=== PATIENT | female | born 1945 | race Caucasian/White ===

== ENCOUNTER 2019-11-05 18:34 | Inpatient (IN) | payer MEDICARE ==
[~2019-11-05] VITALS: Ht 160 cm; Wt 52.0 kg
[2019-11-05 21:35] VITALS: BP 110/63
--- NOTE | 2019-11-05 21:35 | NUR ---
PT RECIEVED VIA STRETCHER FROM EMS, PT NONRESPONSIVE TO PAINFUL STIMULI, RIGHT IJ CVL INTACT WITH NS @ 125 CC/HR, PROPOFOL @ 54 MCG, AND VERSED @ 10.8 ML/HR, LUNGS CLEAR, ETT IN PLACE AND PATENT TO VENT, UJDGE PATENT TO BSD WITH CLEAR PRAKASH URINE, PULSES EQUAL AND PALPABLE, ZACH HOSE TO BILAT LOWER LEGS, BILAT SWR IN USE, WILL CONT TO MONITOR
[2019-11-05 22:00] VITALS: BP 110/63
[2019-11-05 22:29] VITALS: BP 110/63; BMI 20.1
[2019-11-05 22:45] VITALS: BP 104/63
[2019-11-05 23:00] VITALS: BP 104/62
--- NOTE | 2019-11-05 23:30 | NUR ---
PT REMAINS NONRESPONSIVETO STIMULI, VITALS STABLE
[2019-11-06] VITALS (27 sets, daily range): BP systolic 105–142; BP diastolic 56–85; Ht 160 cm; Wt 52.0 kg
--- NOTE | 2019-11-06 01:15 | NUR ---
PT REMAINS SEDATED, WITHDRAWS TO PAINFUL STIMULI, WILL CONT TO WEAN SEDATION
--- NOTE | 2019-11-06 03:00 | NUR ---
PT REMAINS SEDATED, WITHDRAWS TO PAINFUL STIMULI, VITALS REMAIN STABLE, WILL CONT TO MONITOR
[2019-11-06 04:37] LABS: BASOPHILS 0 % (0-2); EOSINOPHILS 0 % (0-7); HEMATOCRIT 31.8 % (36.0-48.0); HEMOGLOBIN 9.7 g/dL (12-16); IMMATURE GRANULOCYTES 0.7 % (0-5); LYMPHOCYTES 2.1 % (15-50); MCH 27.8 pg (26.0-34.0); MCHC 30.5 g/dL (31.0-37.0); MCV 91.1 fL (80.0-100.0); MEAN PLATELET VOLUME 9.8 fL (7.4-10.4); MONOCYTES 2.7 % (2-11); NEUTROPHILS 94.5 % (40-80); PLATELET COUNT 199 10x3/uL (130-400); RBC 3.49 10x6/uL (4.00-5.40); RDW 16.1 % (11.5-14.5); WBC 9.2 10x3/uL (4.8-10.8)
[2019-11-06 04:42] LABS: INR 1.02 (0.85-1.17); PROTIME 12.9 SECONDS (11.6-15.0)
[2019-11-06 04:57] LABS: ALBUMIN 1.9 g/dL (3.4-5.0); ALKALINE PHOSPHATASE 117 U/L (46-116); ALT (SGPT) 35 U/L (10-68); BILIRUBIN - TOTAL 0.23 mg/dL (0.2-1.3); CALC OSMOLALITY 292 mosm/kg (275-300); CARBON DIOXIDE 24.7 mmol/L (21.0-32.0); CHLORIDE - SERUM 111 mmol/L (98-107); CREATININE - SERUM 0.8 mg/dL (0.6-1.3); GLUCOSE 138 mg/dL (74-106); MAGNESIUM - SERUM 1.9 mg/dL (1.8-2.4); PHOSPHOROUS 2.1 mg/dL (2.5-4.9); POTASSIUM - SERUM 3.7 mmol/L (3.5-5.1); PRO BNP 2500 pg/mL (0-125); PROTEIN - SERUM 4.9 g/dL (6.4-8.2); SODIUM 143 mmol/L (136-145); THYROID STIMULATING HORMONE 0.28 uIU/mL (0.36-3.74); UREA NITROGEN 29 mg/dL (7-18); eGFR NON AFRICAN AMERICAN 75 mL/min (90-120)
[2019-11-06 05:11] LABS: CALCIUM 6.3 mg/dL (8.5-10.1)
--- NOTE | 2019-11-06 05:15 | NUR ---
OGT PLACED AND PLACEMENT VERIFIED WITH AUSCULTATION, PLACED TO LIWS, PT TOLERATED WELL, GRIMACES TO PAINFUL STIMULI, VITALS STABLE
[2019-11-06 05:20] LABS: APPEARANCE CLEAR (CLEAR); BILIRUBIN NEGATIVE (NEGATIVE); COLOR YELLOW (YELLOW); GLUCOSE NEGATIVE (NEGATIVE); KETONE NEGATIVE (NEGATIVE); NITRITE NEGATIVE (NEGATIVE); PROTEIN 1+ mg/dL (NEGATIVE); SPECIFIC GRAVITY 1.015 (1.005-1.020); UROBILINOGEN NORMAL (NORMAL)
[2019-11-06 05:21] LABS: BACTERIA FEW /hpf (NEGATIVE); EPITHELIAL CELLS 0-5 /hpf (0-5); WHITE CELLS - URINE 0-5 /hpf (NEGATIVE)
--- NOTE | 2019-11-06 07:00 | NUR ---
REPORT RECEIVED. ASSESSMENT COMPLETE PER FLOW SHEET. VSS. NO NWE CHANGES PT RESTING COMFORTABLY WILL CONTINUE TO MONITOR
--- NOTE | 2019-11-06 09:00 | NUR ---
DR MARTIN AT [facility] GIVEN UDPATE. NO NEW CHANGES WILL CONTINUE TOMONITOR
--- NOTE | 2019-11-06 11:00 | NUR ---
REASSESSMENT COMPLETE PER FLOW SHET. VSS. NO NEW CHANGES WILL CONTINUE TO MONITOR
--- NOTE | 2019-11-06 13:10 | NUR ---
DR MARISCAL AT BEDSIDE FAMILY AT BEDSIDE GIVEN UPDATE. NO NEW CAHNGES WILL CONTINUE TO MONTIOR
--- NOTE | 2019-11-06 15:00 | NUR ---
REASSESSMENT COMPLETE PER FLOW SHEET. VSS. NO NEW CAHNGES WILL CONTINUE TO MONITOR
--- NOTE | 2019-11-06 17:00 | NUR ---
PT RESTING COMFORTABLY VSS NO NEW CHANGES WILL CONTINUE TOMONITOR
--- NOTE | 2019-11-06 18:27 | MORECARE ---
CASE MANAGEMENT DISCHARGE SUMMARY PATIENT: DASIA STRATTON UNIT: [id number] ADM DATE: 11/05/19 AGE: 73 : [birth year] SEX: F ROOM/BED: D.2301 AUTHOR: AMINAH JOHNSON PHYSICIAN: REFERRING PHYSICIAN: JARRED KRUSE MD DATE OF SERVICE: 11/06/19 Discharge Plan Patient Name: DASIA STRATTON [facility] : 1945 Planned Disposition: Anticipated Discharge Date: Discharge Date: Expected LOS: Initial Reviewer: [email or web address] Initial Review Date: 11/06/2019 Generated: 11/06/19 7:27 pm Comments DCP- Discharge Planning Updated by [email or web address]: Natasha aPcheco on 11/06/19 5:[address] CM attempted to visit with patient regarding discharge planning/ needs. Patient currently on vent no family available. CM will continue to follow and assist as needed with discharge planning / needs Patient Name: DASIA STRATTON Page [id number] at 1827 All edits/amendments must be made on the electronic document DICTATION DATE: 11/06/191826 LOADER: PITA 11/06/191826 RPT#: [id number] DC DATE: STATUS: ADM IN [facility] [address] [place] [address] END OF REPORT
--- NOTE | 2019-11-06 18:39 | NUR ---
DR CHARLES CALLED BACK AND GIVEN UPDATE REGAURDING PT STATUS STATEDOKAY
--- NOTE | 2019-11-06 19:30 | NUR ---
PT SEDATED, ETT PATENT TO VENT, LUNGS CLEAR, OGT IN PLACE TO LIWS WITH GREEN OUTPUT, RIGHT IJ CVL INTACT WITH NS @ KVO AND PROPOFOL @ 55 MCG/KG/MIN, JUDGE PATENT TO BSD, BILAT SWR IN USE, SCD'S TO BILAT LOWER LEGS, VITALS STABLE
--- NOTE | 2019-11-06 21:00 | NUR ---
PT REMAINS SEDATED ON VENT, VITALS STABLE
--- NOTE | 2019-11-06 22:56 | NUR ---
REPOSITIONED FOR COMFORT, SMALL LOOSE BM X1, CLEANED PER STAFF, WILL CONT TO MONITOR
[2019-11-07] VITALS (24 sets, daily range): BP systolic 119–165; BP diastolic 62–91
--- NOTE | 2019-11-07 01:26 | NUR ---
PT RESTING QUIETLY, REMAINS SEDATED, VITALS STABLE
--- NOTE | 2019-11-07 03:00 | NUR ---
PT RESPONDS TO STIMULI, COOPERATIVE WITH CARE, BM X1, CLEANED PER STAFF, VITALS STABLE
[2019-11-07 04:32] LABS: BASOPHILS 0 % (0-2); EOSINOPHILS 0 % (0-7); HEMATOCRIT 33.2 % (36.0-48.0); IMMATURE GRANULOCYTES 0.8 % (0-5); LYMPHOCYTES 2.3 % (15-50); MCH 27.8 pg (26.0-34.0); MCHC 30.1 g/dL (31.0-37.0); MCV 92.2 fL (80.0-100.0); MEAN PLATELET VOLUME 9.7 fL (7.4-10.4); MONOCYTES 2.2 % (2-11); NEUTROPHILS 94.7 % (40-80); PLATELET COUNT 204 10x3/uL (130-400); RDW 16.2 % (11.5-14.5); WBC 9.6 10x3/uL (4.8-10.8)
[2019-11-07 05:01] LABS: ANION GAP 10.3 mmol/L (8-16); BILIRUBIN - TOTAL 0.38 mg/dL (0.2-1.3); CARBON DIOXIDE 26.3 mmol/L (21.0-32.0); CREATININE - SERUM 0.9 mg/dL (0.6-1.3); PHOSPHOROUS 1.7 mg/dL (2.5-4.9); POTASSIUM - SERUM 3.6 mmol/L (3.5-5.1)
[2019-11-07 05:02] LABS: CALCIUM 6.1 mg/dL (8.5-10.1)
--- NOTE | 2019-11-07 05:02 | NUR ---
REPOSITIONED, PT AGITATED @ TIMES, NO DISTRESS NOTED, WILL CONT TO MONITOR
--- NOTE | 2019-11-07 14:07 | NUR ---
0700-RECIEVED SUPINE VENTILATOR-OGT TO WALL SUCTION-SR ON MONITOR 0800-DAUGHTER AT BEDSIDE QUESTIONS ANSWERED TO BEST OF ABLILITY 1030-COMPLETE AM CARE DONE WITH LINEN CHANGE AND REPOSITONED TO R SIDE 1200-DR MARTIN AT [facility]-SPOKE WITH DAUGHTER REGARDING PT CONDITION AND PLANNED COURSE OF ACTION 1300-DR MARISCAL AT [facility]-SPOKE WITH DAUGHTER-PT CONCHIS 1-2KBRN
--- NOTE | 2019-11-07 18:46 | NUR ---
1500 OGT 16F PLACED WITHOUT DIFFICULTY-CONFIRMED PLACEMENT WITH AUSCULTATION AND ASPIRATION OF BILE-PULMOCARE AT 20ML/H STARTED- 1700-FAMILY AT BEDSIDE -PT ABLE TO NOD YES FOR FAMILY 1830-PT ON L SIDE-KBRN
[2019-11-08] VITALS (23 sets, daily range): BP systolic 123–196; BP diastolic 60–96
[2019-11-08 06:10] LABS: BASOPHILS 0 % (0-2); EOSINOPHILS 0 % (0-7); HEMATOCRIT 31.9 % (36.0-48.0); HEMOGLOBIN 9.5 g/dL (12-16); IMMATURE GRANULOCYTES 1.3 % (0-5); LYMPHOCYTES 1.9 % (15-50); MCH 27.5 pg (26.0-34.0); MCHC 29.8 g/dL (31.0-37.0); MCV 92.2 fL (80.0-100.0); MEAN PLATELET VOLUME 9.3 fL (7.4-10.4); MONOCYTES 3.6 % (2-11); NEUTROPHILS 93.2 % (40-80); PLATELET COUNT 196 10x3/uL (130-400); RBC 3.46 10x6/uL (4.00-5.40); RDW 16.3 % (11.5-14.5); WBC 7.7 10x3/uL (4.8-10.8)
[2019-11-08 06:29] LABS: ALKALINE PHOSPHATASE 87 U/L (46-116); BILIRUBIN - TOTAL 0.34 mg/dL (0.2-1.3); CARBON DIOXIDE 26.3 mmol/L (21.0-32.0); CHLORIDE - SERUM 115 mmol/L (98-107); CREATININE - SERUM 0.7 mg/dL (0.6-1.3); MAGNESIUM - SERUM 2.1 mg/dL (1.8-2.4); PHOSPHOROUS 1.9 mg/dL (2.5-4.9); POTASSIUM - SERUM 3.4 mmol/L (3.5-5.1); PROTEIN - SERUM 4.8 g/dL (6.4-8.2); SODIUM 151 mmol/L (136-145); UREA NITROGEN 24 mg/dL (7-18); eGFR NON AFRICAN AMERICAN 87 mL/min (90-120)
[2019-11-08 06:38] LABS: CALC OSMOLALITY 308 mosm/kg (275-300); GLUCOSE 187 mg/dL (74-106)
[2019-11-08 06:39] LABS: ALT (SGPT) 18 U/L (10-68); CALCIUM 5.8 mg/dL (8.5-10.1)
--- NOTE | 2019-11-08 08:39 | NUR ---
FAMILY AT BEDSDIE-PT ABLE TO NOD YES AND NO TO QUESTIONS
--- NOTE | 2019-11-08 17:55 | NUR ---
1115-CTA ORDERED -NOTED R JUGULAR ARROW PRODUCT-NON HIGH FLOW -R 20G FOLLOWING 3 ATTEMPT-OBTAINED AND CONFIRMED WITH CT RADIOLOGY ADEQUATE-RESP THERAPY AT [facility]-PORT VENT-DIPRIVAN GTT AT 60MCG-CONCHIS 1-2 FOR TRANSPORT AND PROCEDURE 1150-TOLERATED WELL -RETURNED TO -PLACED TO VENT-FAMILY BROUGHT TO [facility]-EXPLAINED TTEST AND REASON TO RULE OUT BLOOD CLOT IN LUNGS-DR MARTIN IN UNIT 1230-DR MARTIN SPOKE WITH FAMILY REGARDING FINDINGS AND PLAN OF ACTION-CPAP TRIALS TO START-DIPRIVAN DECREASED TO 10MCG-FAMILY STATED HIGH ANXIETY- 1315-PT ALERT-RR 22-PLACED TO CPAP TRIALS -FAMILY AT [facility]- 1330-PT AGITATED ATTEMPTING TO TALK -SHALLOW BREATS-TV<400-ENCOURAGED BY DAUGHTER NOT TO TALK AND AND TAKE SLOW DEEPER BREATH-PT NOT COMPREHENDING-VOLUNTEERED TO LEAVE- 1445-RR 33 TV 250-HR 112-NIBP 199/127-RETURNED TO A/C -DIPRIVAN RETURNED TO [id number]-[id number] NOTIFED- 1530-FAMILY AT BEDSIDE-
--- NOTE | 2019-11-08 19:15 | NUR ---
REPORT RECIEVED, SHIFT ASSESSMENT COMPLETE, PT IS SEDATED ON VENT, ON 30% FIO2 WITH 97% O2 SAT. ALL PPP, VSS, ORAL CARE PROVIDED, WILL CON'T TO MONITOR
--- NOTE | 2019-11-08 21:00 | NUR ---
UPDATE GIVEN TO FAMILY OVER PHONE, PASSWORD GIVEN
--- NOTE | 2019-11-08 23:24 | NUR ---
LG BM AT THIS TIME, COMPLETE BATH AND LINEN CHANGE
[2019-11-09] VITALS (25 sets, daily range): BP systolic 115–205; BP diastolic 55–98
--- NOTE | 2019-11-09 01:15 | NUR ---
PT RESTING AT THIS TIME, WILL CON'T TO MONITOR
--- NOTE | 2019-11-09 03:15 | NUR ---
REASSESSMENT COMPLETE, NO CHANGES NOTED,
[2019-11-09 04:32] LABS: BASOPHILS 0 % (0-2); EOSINOPHILS 0 % (0-7); HEMATOCRIT 31.4 % (36.0-48.0); HEMOGLOBIN 9.3 g/dL (12-16); IMMATURE GRANULOCYTES 1.5 % (0-5); LYMPHOCYTES 3.9 % (15-50); MCH 27.3 pg (26.0-34.0); MCHC 29.6 g/dL (31.0-37.0); MCV 92.1 fL (80.0-100.0); MEAN PLATELET VOLUME 9.5 fL (7.4-10.4); MONOCYTES 3.9 % (2-11); NEUTROPHILS 90.7 % (40-80); PLATELET COUNT 193 10x3/uL (130-400); RBC 3.41 10x6/uL (4.00-5.40); RDW 16.1 % (11.5-14.5); WBC 5.8 10x3/uL (4.8-10.8)
[2019-11-09 05:01] LABS: ALBUMIN 2.1 g/dL (3.4-5.0); ALKALINE PHOSPHATASE 81 U/L (46-116); ALT (SGPT) 17 U/L (10-68); BILIRUBIN - TOTAL 0.22 mg/dL (0.2-1.3); CALC OSMOLALITY 310 mosm/kg (275-300); CARBON DIOXIDE 31.2 mmol/L (21.0-32.0); CREATININE - SERUM 0.6 mg/dL (0.6-1.3); GLUCOSE 164 mg/dL (74-106); MAGNESIUM - SERUM 2.3 mg/dL (1.8-2.4); PHOSPHOROUS 2.3 mg/dL (2.5-4.9); POTASSIUM - SERUM 3.8 mmol/L (3.5-5.1); PROTEIN - SERUM 4.8 g/dL (6.4-8.2); SODIUM 153 mmol/L (136-145); UREA NITROGEN 22 mg/dL (7-18); VANCOMYCIN - RANDOM 6.6 ug/mL (10.0-20.0); eGFR NON AFRICAN AMERICAN > 90 mL/min (90-120)
[2019-11-09 05:04] LABS: CHLORIDE - SERUM 116 mmol/L (98-107)
[2019-11-09 05:05] LABS: CALCIUM 6.3 mg/dL (8.5-10.1)
--- NOTE | 2019-11-09 05:20 | NUR ---
REPOSITIONED FOR COMFORT, ORAL CARE PROVIDED, WILL CON'T TO MONITOR
--- NOTE | 2019-11-09 07:30 | NUR ---
REPORT RECIEVED FROM SANDY GARLAND. NO ACUTE DSITRESS. PATIETN AWAKENS TO VOICE. PROPOFOL TITRATED TO ALLOW PATIENT TO BECOME MORE ALERT. CALM. PULSES PALP IN ALL EXTREMITIES. MINIMAL CRACKLES IN UPPER LOBES OF LUNGS BILAT. PINK SKIN. CAP REFILL LESS THAN 3 SEC. ABLE TO FOLLOW COMMANDS. BED LOW AND LOCKED. CALL LIGHT IWTHIN REACH. WILL CONTINUE TO MONITOR
--- NOTE | 2019-11-09 09:00 | NUR ---
AGATAT HAD A BM. CLEANED UP BATH GIVEN AT THIST JAVAD. FULL LINEN CHANGE
--- NOTE | 2019-11-09 09:20 | NUR ---
NUTRITION F/U PT REMAINS ON VENT, PULMOCARE INFUSING AT 30 CC/HR WITH GOAL RATE 40 CC/HR. WILL CONTINUE TO PROVIDE PULMOCARE, MONITOR PT PROGRESS. RD FOLLOWING
--- NOTE | 2019-11-09 10:00 | NUR ---
CPAP TRIALS STARTED
--- NOTE | 2019-11-09 11:15 | NUR ---
patient back on a/c
--- NOTE | 2019-11-09 13:00 | NUR ---
DR MARTIN AT BEDSIDE. GAS RESULTS SHOWN. NO EXTUBATION TODAY. PATIENT WAS TOO ANXIOUS. HR, RR, AND BP ICNREASED. PER DR MARTIN, TO MAKE HER COMFORTABLE AND KEEP HER SEDATED. TRY CPAP TRIALS AGAIN TOMORROW MORNING. NO ACUTE DISTRESS. PATIENT ABLE TO FOLLOW COMMANDS. DAUGHTER AT BEDSIDE. UPDATE GIVEN. CALL LIGHT WITHINR EACH. WILL CONTINUE TO MONITOR. TUBE FEEDINGS ON HOLD PER CPAP TRIALS
--- NOTE | 2019-11-09 15:23 | NUR ---
PATIENT HAD A BM. CLEANED UP. BATH GIVEN AGAIN. JUDGE CARE DONE. TURNED. SUCTIONED. SEE ADL'S Q2 SEE ASSESSMENT. AFEBRILE. SEDATED. TUBE FEEDINGS GOING.
--- NOTE | 2019-11-09 17:31 | NUR ---
meds given per jan. patient sleeping. easily aroused by voice. can follwo commands. vss. pad changed underneath her. reoriented as needed. no acute distress. will continue to monitor
--- NOTE | 2019-11-09 18:12 | NUR ---
patient had bm. new pad provided.
--- NOTE | 2019-11-09 19:00 | NUR ---
REPORT RECEIVED. ASSESSMENT COMPLETE PER FLOW SHEET. VSS. PT RESTING COMFORTABLY. ORAL ENDOTRACH CARE ADM. REPOSITIONED FOR COMFORT. WILL CONTINUE TO MONITOR
--- NOTE | 2019-11-09 21:00 | NUR ---
PT REPOSITIONED WITH PROMINENCES BRIDGED. ORAL CARE PROVIDED. VSS, CPOC.
--- NOTE | 2019-11-09 23:30 | NUR ---
REASSESSMENT COMPLETE, NO NEW CHANGES AT THIS TIME. PARTIAL LINEN CHANGE PROVIDED. PT REPOSITIONED WITH PROMINENCES BRIDGED. ORAL CARE PROVIDED. VSS, NO S/S OF ACUTE DISTRESS NOTED. ROOM VISIBLE FROM NURSES STATION. CPOC.
[2019-11-10] VITALS (23 sets, daily range): BP systolic 124–186; BP diastolic 62–103
--- NOTE | 2019-11-10 01:00 | NUR ---
NO CHANGES AT THIS TIME. PT REPOSITIONED AND RESTING COMFORTABLY, FOLLOWS SIMPLE COMMANDS. VSS, NO S/S OF ACUTE DISTRESS. CPOC.
--- NOTE | 2019-11-10 03:29 | NUR ---
REASSESSMENT COMPLETE, NO NEW CHANGES AT THIS TIME. PT REPOSITIONED WITH PROMINENCES BRIDGED. ORAL CARE PROVIDED. NO S/S OF ACUTE DISTRESS NOTED. ROOM VISIBLE FROM NURSES STATION. CPOC.
[2019-11-10 05:21] LABS: BASOPHILS 0 % (0-2); EOSINOPHILS 0.2 % (0-7); HEMATOCRIT 32.3 % (36.0-48.0); HEMOGLOBIN 9.6 g/dL (12-16); IMMATURE GRANULOCYTES 1.7 % (0-5); LYMPHOCYTES 4.6 % (15-50); MCH 27.4 pg (26.0-34.0); MCHC 29.7 g/dL (31.0-37.0); MCV 92.3 fL (80.0-100.0); MEAN PLATELET VOLUME 9.4 fL (7.4-10.4); MONOCYTES 3.5 % (2-11); PLATELET COUNT 179 10x3/uL (130-400); RDW 15.7 % (11.5-14.5)
--- NOTE | 2019-11-10 05:43 | NUR ---
COMPLETE CHG BATH AND LINEN CHANGE PROVIDED. ORAL CARE PROVIDED. VSS, CPOC.
[2019-11-10 05:52] LABS: ALBUMIN 2.2 g/dL (3.4-5.0); ALKALINE PHOSPHATASE 65 U/L (46-116); ALT (SGPT) 16 U/L (10-68); BILIRUBIN - TOTAL 0.37 mg/dL (0.2-1.3); CHLORIDE - SERUM 111 mmol/L (98-107); CREATININE - SERUM 0.6 mg/dL (0.6-1.3); GLUCOSE 161 mg/dL (74-106); MAGNESIUM - SERUM 1.9 mg/dL (1.8-2.4); PHOSPHOROUS 2.2 mg/dL (2.5-4.9); POTASSIUM - SERUM 3.4 mmol/L (3.5-5.1); SODIUM 147 mmol/L (136-145); VANCOMYCIN - RANDOM 7.1 ug/mL (10.0-20.0); eGFR NON AFRICAN AMERICAN > 90 mL/min (90-120)
[2019-11-10 06:13] LABS: CALC OSMOLALITY 295 mosm/kg (275-300); UREA NITROGEN 16 mg/dL (7-18)
[2019-11-10 06:14] LABS: CALCIUM 6.3 mg/dL (8.5-10.1)
--- NOTE | 2019-11-10 07:15 | NUR ---
REPORT RECEIVED. PT ON VENT, PER RT SETTINGS. ON TUBE FEEDS. PULMOCARE AT 40ML/HR. PT HAS RIGHT IJ WITH PROPOFOL AT 30MCG AND D5W AT 75ML/HR. PT IN RESTRAINTS. HAS JUDGE. GETS FSBS ACHS. VSS. WILL CONTINUE TO MONITOR.
--- NOTE | 2019-11-10 07:50 | NUR ---
SEDATION TURNED OFF PER RT FOR CPAP TRIALS AND ABG DUE LATER.
--- NOTE | 2019-11-10 08:00 | NUR ---
CPAP TRIAL STARTING PER RT.
--- NOTE | 2019-11-10 09:45 | NUR ---
PT INCONTINENT OF BOWEL. CLEANED AND REPOSITIONED. CREAM APPLIED TO BOTTOM. VSS. WILL CONTINUE TO MONITOR.
--- NOTE | 2019-11-10 11:30 | NUR ---
PT ALERT AND FOLLOWING SIMPLE COMMANDS. BLOOD SUGAR CHECKED. NO COVERAGE NEEDED. WILL CONTINUE TO MONITOR.
--- NOTE | 2019-11-10 13:07 | CN ---
PATIENT NAME:DASIA STRATTON MEDICAL RECORD: [id number] : [birth year] LOCATION:[id number] ADMIT DATE: 11/05/19 ACCOUNT: [id number] CONSULTING PHYSICIAN: JAMMIE KIRKLAND MD REFERRING PHYSICIAN: JARRED KRUSE MD DATE OF CONSULTATION: 11/07/2019 HISTORY OF PRESENT ILLNESS: A 73-year-old female with a history of severe COPD, was actually initially admitted to [facility]. Please note, the information is gleaned from the old chart as well as talking with the nurse as the patient is currently intubated and unable to give history. No known cardiovascular history. She was extubated at [facility], subsequently went into arrest and was reintubated and transferred here, failed intubation here yesterday, talking with nurse sounded like severe bronchospasm clinical picture [place]. We are asked to see her concerning her cardiovascular status. PAST MEDICAL HISTORY: Includes; 1. History of O2 dependent COPD. 2. Hypertension. 3. Breast CA, chemo and x-ray therapy in 2013. SOCIAL HISTORY: Every day smoker, nondrinker, was independent of her ADLs. ALLERGIES: None known. REVIEW OF SYSTEMS: Unobtainable due to the patient's factors. PHYSICAL EXAMINATION: GENERAL: Intubated, sedated, no acute distress. VITAL SIGNS: Blood pressure 131/64, pulse 54 and regular. HEENT: Normocephalic, atraumatic. NECK: No bruits noted. HEART: Regular, II/ systolic ejection murmur. LUNGS: Inspiratory and end expiratory wheezes, marked upper airway noise. ABDOMEN: Soft, nontender. EXTREMITIES: Pulses are decreased 1+ with no edema. IMPRESSION: Arrest, status post intubation, failed extubation yesterday. Echocardiographic study shows preserved LV systolic function. She has had bradycardia; however, the DE and QRS duration appear normal. Further recommendations based on clinical course. TRANSINT:[id number] Voice Confirmation ID: [id number] DOCUMENT ID: [id number] JAMMIE KIRKLAND MD at 1307 CC: [id number] DICTATION DATE: 11/07/19 0903 CARDIAC MONITOR TECHNICIAN: 11/07/19 1021 ADM IN [place] [id number] [place] [address]
--- NOTE | 2019-11-10 13:39 | NUR ---
PT SWITCHED BACK TO CPAP TRIAL. FAMILY AT BEDSIDE.
--- NOTE | 2019-11-10 13:58 | MORECARE ---
CASE MANAGEMENT DISCHARGE SUMMARY PATIENT: DASIA STRATTON UNIT: [id number] ADM DATE: 11/05/19 AGE: 73 : [birth year] SEX: F ROOM/BED: D.2301 AUTHOR: AMINAH JOHNSON PHYSICIAN: REFERRING PHYSICIAN: JARRED KRUSE MD DATE OF SERVICE: 11/10/19 Discharge Plan Patient Name: DASIA STRATTON [facility] [facility] 1945 Planned Disposition: Anticipated Discharge Date: Discharge Date: Expected LOS: Initial Reviewer: [email or web address] Initial Review Date: 11/06/2019 Generated: 11/10/19 2:57 pm DCP- Discharge Planning Updated by [email or web address]: Natasha Pacheco on 11/06/19 5:[address] CM attempted to visit with patient regarding discharge planning/ needs. Patient currently on vent no family available. CM will continue to follow and assist as needed with discharge planning / needs Last DP export: 11/06/19 5:27 Patient Name: DASIA STRATTON Page 35021 at 1358 All edits/amendments must be made on the electronic document DICTATION DATE: 11/10/191356 CLINIC LICENSED PRACTICAL NURSE: PITA 11/10/191356 RPT#: [id number] DC DATE: STATUS: ADM IN [facility] [address] [place] [address] END OF REPORT
--- NOTE | 2019-11-10 14:06 | MORECARE ---
CASE MANAGEMENT DISCHARGE SUMMARY PATIENT: DASIA STRATTON UNIT: [id number] ADM DATE: 11/05/19 AGE: 73 : [birth year] SEX: F ROOM/BED: D.2301 AUTHOR: ALEX,DOC PHYSICIAN: REFERRING PHYSICIAN: JARRED KRUSE MD DATE OF SERVICE: 11/10/19 Discharge Plan Patient Name: DASIA STRATTON [facility]:[place] : 1945 Planned Disposition: Anticipated Discharge Date: Discharge Date: Expected LOS: Initial Reviewer: [email or web address] Initial Review Date: 11/06/2019 Generated: 11/10/19 3:06 pm Comments DCP- Discharge Planning Updated by [email or web address]: Natasha Pacheco on 11/10/19 1:[address] LATE ENTRY 11/09/19 Patient Name: DASIA STRATTON Admission Status: Elective Accout number: [id number] Admission Date: 11-05-2019 : 1945 Admission Diagnosis: Attending: JARRED SCALES Current LOS: 4 Anticipated DC Date: Planned Disposition: Primary Insurance: [employer] PPO [facility] Discharge Planning Comments: CM met with patient's daughter Jennifer to complete initial dc planning assessment. Patient is currently still on vent. CM educated patient's daughter on the CM role and verbal consent given by patient to complete assessment. Patient lives at home with her where she is independent with her care. At discharge patient plans to return home and feels this is a safe discharge. CM discussed availability of home health, rehab services, and medical equipment. Her daughter will be her dolly driver home. Patient has a nebulizer and home o2 ( unknown provider) Jennifer denied known discharge needs at this time. CM will continue to follow and will assist as needed with dc plans/needs. Manufacturing Planner: Natasha Pacheco DCP- Discharge Planning Updated by [email or web address]: Natasha Pacheco on 11/06/19 5:[address] CM attempted to visit with patient regarding discharge planning/ needs. Patient currently on vent no family available. CM will continue to follow and assist as needed with discharge planning / needs DCPIA - Discharge Planning Initial Assessment Updated by [email or web address]: Natasha Pacheco on 11/10/19 1:58 pm * Is the patient Alert and Oriented? Yes * How many steps to enter\exit or inside your home? * PCP [facility] - DR MALDONADO OFFICE * Pharmacy [facility] * Preadmission Environment Home with Family * ADLs Independent * Equipment Oxygen * Other Equipment HOME 02 AND NEBULIZER * List name and contact numbers for known caregivers / representatives who currently or will assist patient after discharge: JENNIFER RODRIGUEZ - DAUGHTER- [phone] OR [phone] * Verbal permission to speak to the caregivers and representatives has been obtained from the patient. N/A * Community resources currently utilized None * Additional services required to return to the preadmission environment? No * Can the patient safely return to the preadmission environment? Yes * Has this patient been hospitalized within the prior 30 days at any hospital? No Last DP export: 11/10/19 12:58 Patient Name: DASIA STRATTON Page 15515 at 1406 All edits/amendments must be made on the electronic document DICTATION DATE: 11/10/19 1406 BACK GRINDER: PITA 11/10/19 1406 RPT#: [id number] DC DATE: STATUS: ADM IN [facility] [address] [place] [address] END OF REPORT
--- NOTE | 2019-11-10 14:44 | NUR ---
RECEIVED BEDSIDE REPORT ON PATIENT AND ASSUMED CARE. PATIENT WITH PROPOFOL AT 30 MCG/KG/MIN INFUSING TO RIGHT IJ, ALERT AND FOLLOWING COMMANDS, ON CPAP TRAIL SINCE 1330, TOLERATING WELL. D5W INFUSING AT 75 CC/HR. IV 20 GA TO RIGHT UPPER ARM, NOT ABLE TO FLUSH OR BLOOD RETURN, DC'D, IV 20 GA TO RIGHT FA, NOT ABLE TO FLUSH OR BLOOD RETURN, DC'D. DRESSING TO RIGHT IJ CHANGED. BBS - COARSE, SUCTION MINIMAL WHITE SPUTUM FROM ETT. PATIENTS BUTTOCKS ARE REDDENED AND EXCORIATED, TURNED AND REPOSITONED, CLEANED AND BARRIER PASTE APPLIED. SCD'S PLACED. HEAD TO TOE ASSESSMENT COMPLETED.
--- NOTE | 2019-11-10 17:00 | NUR ---
PATIENT TURNED AND REPOSITIONED IN BED. VSS.
--- NOTE | 2019-11-10 18:10 | NUR ---
PATIENT SITTING UP ATTEMPTING TO PULL ETT, PROPOFOL INCREASED TO 4 MCG/KG/MIN.
--- NOTE | 2019-11-10 22:00 | NUR ---
NO VISITORS DURING VISITATION
--- NOTE | 2019-11-10 23:00 | NUR ---
REASSESSMENT COMPLETE, SEE FLOWSHEET. REPOSITIONED WITH PROMINENCES BRIDGED. ORAL CARE PROVIDED. VSS, CPOC.
[2019-11-11] VITALS (24 sets, daily range): BP systolic 121–169; BP diastolic 62–93
--- NOTE | 2019-11-11 01:00 | NUR ---
REPOSITIONED WITH PROMINENCES BRIDGED, ORAL CARE. VSS, CPOC.
--- NOTE | 2019-11-11 03:00 | NUR ---
REPOSITIONED WITH PROMINENCES BRIGED. PARTIAL LINEN CHANGE PROVIDED. VSS, CPOC.
[2019-11-11 05:55] LABS: BASOPHILS 0 % (0-2); EOSINOPHILS 0.1 % (0-7); HEMATOCRIT 31.1 % (36.0-48.0); HEMOGLOBIN 9.3 g/dL (12-16); IMMATURE GRANULOCYTES 1.6 % (0-5); MCH 27.6 pg (26.0-34.0); MCHC 29.9 g/dL (31.0-37.0); MCV 92.3 fL (80.0-100.0); MEAN PLATELET VOLUME 9.8 fL (7.4-10.4); MONOCYTES 6.2 % (2-11); NEUTROPHILS 88.1 % (40-80); PLATELET COUNT 200 10x3/uL (130-400); RBC 3.37 10x6/uL (4.00-5.40); RDW 15.5 % (11.5-14.5); WBC 7.4 10x3/uL (4.8-10.8)
--- NOTE | 2019-11-11 06:00 | NUR ---
CHG BATH AND LINEN CHANGE PROVIDED
[2019-11-11 06:05] LABS: CHLORIDE - SERUM 109 mmol/L (98-107); CREATININE - SERUM 0.6 mg/dL (0.6-1.3); GLUCOSE 143 mg/dL (74-106); MAGNESIUM - SERUM 1.6 mg/dL (1.8-2.4); POTASSIUM - SERUM 3.9 mmol/L (3.5-5.1); SODIUM 147 mmol/L (136-145); eGFR NON AFRICAN AMERICAN > 90 mL/min (90-120)
[2019-11-11 06:07] LABS: CALC OSMOLALITY 292 mosm/kg (275-300); UREA NITROGEN 11 mg/dL (7-18)
--- NOTE | 2019-11-11 07:00 | NUR ---
AWAKES EASILY TO VERBAL SITMULI. OBEYING COMMANDS. ETT SECURE TO VENT. BILATERAL LUNG SOUNDS EQUAL. RIJ INFUSING WITH DIPRIVAN AT 30 MEQ/KG/MIN. AND D5W AT 75 ML HOUR. MONITOR SR. JUDGE CATH PATENT DRAINING PRAKASH URINE. HEAD OF BED ELEVATED 30 DEGREES. KEEPS TRYING TO TALK. ENCOURAGE NOT TO TALK RIGHT NOW TUBE WILL MAKE HER THROAT SORE.
--- NOTE | 2019-11-11 08:52 | NUR ---
Nutrition follow-up: Pt remains intubated; weaning trials in progress Pulmocare infusing @ goal rate of 40 ml/hr Labs reviewed Wt: 120# RDN following.
--- NOTE | 2019-11-11 09:00 | NUR ---
WAITING ON DAUGHTER TO PLACE BEFORE PLACING ON CPAP. DAUGHTER HELPS KEEP PATIENT CALM. PATIENT RESTING COMFORTABLY NO DISTRESS.
--- NOTE | 2019-11-11 10:00 | NUR ---
ON CPAP DAUGHTER AT BEDSIDE. DIPRIVAN AT 30 MCQ/KG/MIN TO KEEP PATIENT CALM. FAMILY REQUEST MORE ANXIETY MEDS, EXPLAINED SHE GETS XANAN 3 X TIME A DAY SCHEDULED AND WE ARE LEAVING THE DIPRIVAN TO KEEP HER CALM.
--- NOTE | 2019-11-11 10:30 | NUR ---
PATIENT TOLERATING CPAP WELL. NO DISTRESS. DAUGHTER AT BEDSIDE. RESP DEEP AND REGULAR. RATE OF 16
--- NOTE | 2019-11-11 10:51 | NUR ---
DR. MARTIN HERE ORDERS TO DO ABG. DIPRIVAN AND TUBE FEEDING TURNED OFF. DAUGHTER AT BEDSIDE TO HELP KEEP PATIENT CALM.
--- NOTE | 2019-11-11 11:10 | NUR ---
EXTUBATED OG PULLED. OXYGEN AT 3 LITERS PER NC. GOOD COUGH. COUGHING THICK YELLOW SPUTUM. HEAD OF BED ELEBATED 90 DEGREES. ZOFRAN GIVEN FOR COMPLIENAT OF NAUSEA
--- NOTE | 2019-11-11 12:23 | NUR ---
HEAD OF BED ELEBATED 90 DEGREES. MINIMAL SHORTNESS OF BREATH. SUCTION SELF WITH ENCOURAGEMENT.
--- NOTE | 2019-11-11 13:00 | NUR ---
PATIENT INSIST ON GETTING UP TO GO BATHROOM. PLACED ON BSC. PATIENT TRIES EASILY. PERICARE DONE RETURNED TO BED. TOLERATED POORLY CALMSEPTIN APPLIED TO COCCYX AREA. DAUGHTER HERE.
--- NOTE | 2019-11-11 14:30 | NUR ---
PATIENT HAVING A PANIC ATTACK. DR. MERIDA NOTIFIED.ORDERS RECEIVED FOR ANOTHER XANAX PILL.
[2019-11-11] MEDS ORDERED: EFFEXOR XR150 MG PO (14:44)
--- NOTE | 2019-11-11 15:00 | NUR ---
PATIENT MORE CALM, DR. MARTIN HERE ORDERS RECEIVED TO INCREASE XANAX TO .5 MG TID. PATIENT RESTING COMFORTABLY. DAUGHTER GOING HOME.
--- NOTE | 2019-11-11 16:00 | NUR ---
REPOSITIONED. TOLERATED FAIR. WATCHING TV. CLAMER. DRINKING ICE WATER WITHOUT COUGHING OR HAVING PROBLEMS SWALLOWING.
--- NOTE | 2019-11-11 17:02 | NUR ---
COLA ON ICE PROVIDED FOR PATIENT NO DIFFICULTY SWALLOWING. STILL TOO WEAK TO LIFE CUP TO MOUTH OR TO SUCTION SELF WITH YAUNKER
--- NOTE | 2019-11-11 18:00 | NUR ---
repositioned in bed. fresh pad applied. reorientated to place, situation. no resp distress
--- NOTE | 2019-11-11 19:50 | NUR ---
PT RESTING QUIETLY WITH VSS, AOX4, NO C/O PAIN AT THIS TIME. PT REPOSITIONED FOR COMFORT WITH PROMINENCES BRIDGED. LUNG SOUNDS DIMINISHED, 3L O2 VIA HFNC, SPO2 97. PERIPHERAL PULSES PRESENT. BOWEL SOUNDS ACTIVE IN ALL QUADRANTS. JUDGE CATH INTACT. I/S COMPLETED REACHING 500 X10. CALL LIGHT WITHIN PT REACH. CPOC.
--- NOTE | 2019-11-11 21:22 | NUR ---
HS MEDS GIVEN, FRESH WATER TO BEDSIDE. TOLERATED WELL. PT REPOSITIONED WITH PROMINENCES BRIDGED. DENIES FURTHER NEEDS. CALL LIGHT AND BEDSIDE TABLE WITHIN PT REACH. CPOC.
--- NOTE | 2019-11-11 22:01 | NUR ---
PT HAD SMALL LIQUID BM, COMPLETE CHG BATH AND LINEN CHANGE PROVIDED. CALMOSEPTINE CREAM APPLIED ORDERED. PROMINENCES BRIDGED. VSS, NO C/O PAIN AT THIS TIME. RESTING COMFORTABLY. DENIES FURTHER NEEDS. CALL LIGHT WITHIN PT REACH. CPOC.
--- NOTE | 2019-11-11 23:30 | NUR ---
REASSESSMENT COMPLETE, NO NEW CHANGES AT THIS TIME. PT REPOSITIONED FOR COMFORT, EXTRA BLANKET PROVIDED UPON REQUEST. VSS, DENIES FURTHER NEEDS AT THIS TIME. CALL LIGHT AND BEDSIDE TABLE WITHIN PT REACH. CPOC.
[2019-11-12] VITALS (24 sets, daily range): BP systolic 114–172; BP diastolic 62–101
--- NOTE | 2019-11-12 03:51 | NUR ---
REASSESSMENT COMPLETE, NO NEW CHANGES AT THIS TIME. REPOSITIONED FOR COMFORT. VSS, NO C/O PAIN AT THIS TIME. CALL LIGHT WITHIN PT REACH. CPOC.
--- NOTE | 2019-11-12 05:21 | NUR ---
PT REPOSITIONED WITH PARTIAL LINEN CHANGE PROVIDED. VSS, NO C/O PAIN. DENIES NEEDS. CALL LIGHT WITHIN PT REACH. CPOC.
--- NOTE | 2019-11-12 07:00 | NUR ---
PATINENT RECIEVED FROM PREVIOUS NURSE RESTING WITH NO DISTRESS. RESPIRATIONS REGULAR AND NONLABORED. EXP WHEEZING NOTED TO BILAAT UPPER LOBES. 02 SAT 97% 4L NC. PATIENT IS READY TO EAT. SWALLOW EVAL ORDERED. PER PM NURSE PATIENT HAS TOLERATED WATER AND COFFEE. RIGHT IJ PATENT WITH DRESSING INTACT. D5W @75 INFUSING JUDGE CATH PATENT TO BEDSIDE DRAINAGE.
--- NOTE | 2019-11-12 08:00 | NUR ---
PATIENT RESTING IN BED SPEAKING WITH DAUGHTER ON PHONE. RESPIRATIONS NONLABORED. CL IN REACH
--- NOTE | 2019-11-12 09:00 | NUR ---
PATIENT REPOSITIONED WITH HOB ELEVATED, BARRIER CREAM APPLIED TO EXCOREATION TO BILAT BUTTOCKS. CL IN REACH
--- NOTE | 2019-11-12 10:00 | NUR ---
PATIENT RESTING WITH NO NEEDS VOICED, NO VISITORS THIS AM BUT PATIENT HAS TALKED TO DAUGHTER ON PHONE. CL IN REACH
--- NOTE | 2019-11-12 11:00 | NUR ---
FSBS 127, RESTING WELL WITH NO NEEDS VOICED.
--- NOTE | 2019-11-12 12:12 | NUR ---
RESTING WITH BIPAP IN PLACE. CL IN REACH
--- NOTE | 2019-11-12 13:55 | NUR ---
JUDGE CATH DISCONTINUED, PATIENT TOLERATED WELL, MODERATE ASSIST TO BSC.
[2019-11-12 14:20] LABS: T4 THYROXIN - FREE 0.83 ng/dL (0.76-1.46); THYROID STIMULATING HORMONE 2.79 uIU/mL (0.36-3.74)
--- NOTE | 2019-11-12 15:00 | NUR ---
PATIENT ASSISTED TO BSC, VERY WEAK AND SHORTNESS OF BREATH WITH ACTIVITY.
--- NOTE | 2019-11-12 15:25 | EC ---
PATIENT:DASIA STRATTON DATE OF SERVICE: 11/05/19 SEX: F MEDICAL RECORD: [id number] DATE OF : [birth year] LOCATION:[facility] D.230 AGE OF PATIENT: 73 ADMISSION DATE: 11/05/19 REFERRING PHYSICIAN: INTERPRETING PHYSICIAN: KRISTA BLACK MD ECHOCARDIOGRAM REPORT ECHO CHARGES 4 ECHO COMPLETE Date: 11/06/19 CLINICAL DIAGNOSIS: BRADYCARDIA, CARDIAC ARREST ECHOCARDIOGRAPHIC MEASUREMENTS (adult normal given) AC root (d.<3.7cm) 2.5 cm LV Septum d (<1.2 cm> 0.8 cm Valve Excursion 1.6 cm LV Septum (systole) 0.9 cm Left Atria (s.<4.0cm> 4.1 cm LVPW d(<1.2cm) 0.7 cm RV (d.<2.3cm) 2.3 cm LVPW (sytole) 1.3 cm LV diastole(<5.6CM) 5.2 cm MV E-F(>70mm/sec) cm LV systole 4.4 cm LVOT Diameter 1.5 cm MV exc.(>10mm) cm Est.ejection fraction (50-75%) % DOPPLER: LVIT cm/sec A 89 cm/sec E 102 cm/sec LA cm/sec RVSP 17.5 mmHg LVOT 95 cm/sec AOP1/2T m/s Asc. Ao 140 cm/sec RVOT 65 cm/sec RA cm/sec PA 61 cm/sec AV Gradient Peak 7.9 mmHg AV Mean 3.9 mmHg AV Area 1.3 cm MV Gradient Peak 4.9 mmHg MV Mean 2.1 mmHg MV Area cm COMMENTS: Generator Rebuilder: Slime QIU Automatic Spooler Operator: 3 Dr. Castillo TAPE# PACS Pericardial Effusion Y DATE OF SERVICE: ECHOCARDIOGRAM FINDINGS: 1. Left ventricular chamber size is within normal limits. Left ventricular systolic function is normal. Overall ejection fraction estimated at 55%. 2. Left atrium is enlarged at 4.1 cm. Right atrium and right ventricle chamber sizes are as well mildly dilated. 3. Valvular structures have normal structure and motion. ECHOCARDIOGRAM REPORT [id number] DASIA STRATTON 4. Doppler interrogation reveals no significant valvular insufficiency or stenosis. Pulmonary systolic pressure is normal estimated at 17 mmHg. 5. No evidence of pericardial effusion or left ventricular thrombus. TRANSINT:[id number] Voice Confirmation ID: [id number] DOCUMENT ID: [id number] KRISTA BLACK MD at 1525 CC: [id number] DICTATION DATE: 11/06/19 1146 [employer] FACULTY MEMBER: 11/06/19 1320 ADM IN [place] [id number] [place] [address]
--- NOTE | 2019-11-12 17:00 | NUR ---
PATIENT TOLERATED MECHANICAL SOFT DIET WELL. UPDATED DAUGHTER ON PATIENTS CONDITION.
--- NOTE | 2019-11-12 19:00 | NUR ---
ASSESSMENT COMPLETED. LAYING IN BED, EYES CLOSED, EASILY WAKES. DENIES ANY NEEDS. O2 AT 4L VIA HIGH FLOW NC. RIGHT IJ DRSG CDI. HELPED REPOSITION
--- NOTE | 2019-11-12 21:00 | NUR ---
CHG BATH WITH COMPLETE LINEN CHANGE COMPLETED. DENIES ANY NEEDS
--- NOTE | 2019-11-12 23:00 | NUR ---
RE-ASSESSMENT COMPLETED. NO CHANGES SINCE LAST ASSESSMENT. DENIES ANY NEEDS.
[2019-11-13] VITALS (19 sets, daily range): BP systolic 134–178; BP diastolic 66–92
--- NOTE | 2019-11-13 01:00 | NUR ---
LAYING BACK IN BED, EYES CLOSED, NO SIGNS OF DISCOMFORT
--- NOTE | 2019-11-13 03:00 | NUR ---
RE-ASSESSMENT COMPLETED. NO CHANGES SINCE LAST ASSESSMENT. BIPAP ON PER ORDERS
[2019-11-13 04:22] LABS: CALC OSMOLALITY 293 mosm/kg (275-300); CHLORIDE - SERUM 109 mmol/L (98-107); CREATININE - SERUM 0.5 mg/dL (0.6-1.3); GLUCOSE 153 mg/dL (74-106); MAGNESIUM - SERUM 1.5 mg/dL (1.8-2.4); POTASSIUM - SERUM 3.9 mmol/L (3.5-5.1); SODIUM 147 mmol/L (136-145); UREA NITROGEN 9 mg/dL (7-18); eGFR NON AFRICAN AMERICAN > 90 mL/min (90-120)
[2019-11-13 04:28] LABS: CALCIUM 6.5 mg/dL (8.5-10.1)
--- NOTE | 2019-11-13 04:58 | NUR ---
TOLERATED MEDICATIONS WITH DIFFICULTY, DRINKING THIN LIQUIDS WITHOUT ANY CHOKING OR COMPLICATIONS. DENIES ANY NEEDS. O2 HIGH FLOW AT 4 L
--- NOTE | 2019-11-13 07:00 | NUR ---
RECEIVED BEDSIDE REPORT AND ASSUMED CARE OF PATIENT. PATIENT ALERT AND ORIENTED X 4, SITTING UP IN BED AWAKE. VSS. CM - SR RATE 92, BBS - CLEAR, DIMINISHED IN BASES SPO2 - 92% ON 4 LPM VIA NC. IV INFUSING D5W AT 75 CC/HR TO RIGHT IJ, DRESSING C/D/I. HEAD TO TOE ASSESSMENT COMPLETED.
--- NOTE | 2019-11-13 07:13 | NUR ---
Nutrition follow-up: Pt extubated Diet advanced to mechanical soft with thin liquids per speech PO intake 25-50% x 2 meals Labs reviewed; Mg, PO4 low Wt: 115# RDN following.
--- NOTE | 2019-11-13 07:52 | NUR ---
PATEINT GIVEN BREAKFAST TRAY. VSS. NO NEEDS AT THIS TIME.
--- NOTE | 2019-11-13 08:19 | NUR ---
PATEINT MEDS GIVEN PER JAN. VSS. PATIENT ATE APPROXIMATELY 90% OF BREAKFAST TRAY. NO NEEDS AT THIS TIME.
--- NOTE | 2019-11-13 09:21 | NUR ---
PATEINT UP TO BEDSIDE COMMODE WITH ASSIST. VOIDS 450 CC OF YELLOW URINE AND HAS BM, LOOSE DARK STOOL. CLEANED AND BACK TO BED. VSS.
--- NOTE | 2019-11-13 09:36 | NUR ---
PATEINT UP TO BEDSIDE CHAIR. VSS. NO NEEDS AT THIS TIME.
--- NOTE | 2019-11-13 11:08 | NUR ---
REASSESSMENT COMPLETE. VSS. SITTING UP IN BEDSIDE CHAIR. NO NEEDS AT THIS TIME.
--- NOTE | 2019-11-13 11:30 | NUR ---
PATIENT ATE APPROXIMATELY 60% OF LUNCH. VSS.
--- NOTE | 2019-11-13 11:47 | NUR ---
DR. MARTIN AND DR. VEGA AT ROOM OK TO TRANSFER TO THE FLOOR.
--- NOTE | 2019-11-13 12:20 | NUR ---
PRN CATAPRESS GIVEN FOR SYSTOLIC BP 178, PER ORDER PRN.
--- NOTE | 2019-11-13 13:22 | NUR ---
PATIENT UP TO BEDSIDE COMMODE, VOIDS 375 CC UOP, YELLOW, CLEAR, ASSISTED BACK TO BED AND PLACED ON PRN BIPAP 15/5, RATE 15, FIO2 30%.
--- NOTE | 2019-11-13 15:08 | NUR ---
REASSESSMENT COMPLETE. VSS. PATIENT PLACED BACK ON 4 LPM VIA NC AND ASSISTED UP TO BEDSIDE CHAIR. CALL LIGHT WITHIN REACH. NO NEEDS AT THIS TIME.
--- NOTE | 2019-11-13 17:02 | NUR ---
REPORT CALLED TO TAWANNA GARLAND, PATIENT TO TRANSFER TO ROOM 2210.
--- NOTE | 2019-11-13 17:14 | NUR ---
PATIENT TRANSFERRED TO ROOM 2210 VIA WHEEL CHAIR AND PORTABLE O2.
--- NOTE | 2019-11-13 17:47 | NUR ---
TO ROOM 2224 FROM ICU. PT IS WITHOUT DISTRESS.ORIENTATION TO ROOM.CALL LIGHT PLACED IN REACH.
--- NOTE | 2019-11-13 18:37 | NUR ---
ASSISTED WITH BEDPAN. PATIENTS LIZET AREA IS RED AND PEELING. ENTIRE BUTTOCKS AND POSTERIOR UPPER THIGHS RED AND PEELING. PT CLEANED AND CREAM APPLIED. PT BECAME VERY SHORT OF BREATH AND PLACED ON BIPAP ORDERED.
--- NOTE | 2019-11-13 19:00 | MORECARE ---
CASE MANAGEMENT DISCHARGE SUMMARY PATIENT: DASIA STRATTON UNIT: [id number] ADM DATE: 11/05/19 AGE: 73 : 47 SEX: F ROOM/BED: D.2224 AUTHOR: ALEX,DOC PHYSICIAN: REFERRING PHYSICIAN: JARRED KRUSE MD DATE OF SERVICE: 11/13/19 Discharge Plan Patient Name: DASIA STRATTON Facility: [facility]:[place] : 1945 Planned Disposition: Anticipated Discharge Date: Discharge Date: Expected LOS: Initial Reviewer: [email or web address] Initial Review Date: 11/06/2019 Generated: 11/13/19 8:00 pm DCP- Discharge Planning Updated by [email or web address]: Natasha Pacheco on 11/10/19 1:[address] LATE ENTRY 11/09/19 Patient Name: DASIA STRATTON Admission Status: Elective Accout number: [id number] Admission Date: 11-05-2019 : 1945 Admission Diagnosis: Attending: JARRED SCALES Current LOS: 4 Anticipated DC Date: Planned Disposition: Primary Insurance: [employer] CHOICE PPO [facility] Discharge Planning Comments: CM met with patient's daughter Jennifer to complete initial dc planning assessment. Patient is currently still on vent. CM educated patient's daughter on the CM role and verbal consent given by patient to complete assessment. Patient lives at home with her where she is independent with her care. At discharge patient plans to return home and feels this is a safe discharge. CM discussed availability of home health, rehab services, and medical equipment. Her daughter will be her horse and wagon driver home. Patient has a nebulizer and home o2 ( unknown provider) Jennifer denied known discharge needs at this time. CM will continue to follow and will assist as needed with dc plans/needs. Deck Supervisor: Natasha Pacheco DCP- Discharge Planning Updated by [email or web address]: Natasha Pacheco on 11/06/19 5:[address] CM attempted to visit with patient regarding discharge planning/ needs. Patient currently on vent no family available. CM will continue to follow and assist as needed with discharge planning / needs DCPIA - Discharge Planning Initial Assessment Updated by [email or web address]: Natasha Pacheco on 11/10/19 1:58 pm * Is the patient Alert and Oriented? Yes * How many steps to enter\exit or inside your home? * PCP ALAN CARE[facility] - DR MALDONADO OFFICE * Pharmacy [facility] * Preadmission Environment Home with Family * ADLs Independent * Equipment Oxygen * Other Equipment HOME 02 AND NEBULIZER * List name and contact numbers for known caregivers / representatives who currently or will assist patient after discharge: JENNIFER RODRIGUEZ - DAUGHTER- [phone] OR [phone] * Verbal permission to speak to the caregivers and representatives has been obtained from the patient. N/A * Community resources currently utilized None * Additional services required to return to the preadmission environment? No * Can the patient safely return to the preadmission environment? Yes * Has this patient been hospitalized within the prior 30 days at any hospital? No External Providers External Provider: OTHER-OTHER Next Contact Date: Service Request Date: Service Type: Resolution: Reviewer: Comments: Coverage Notice Reviewer: [email or web address] James Pacheco Notice Issued Date-Time: 11/13/2019 11:30 Notice Type: Patient Choice Letter Notice Delivered To: Patient Relationship to Patient: Self Meat Blender Name: Delivery Method: - Bonita Days: Prior Verbal Notification: Recipient Understood Notice: Yes Recipient Signature: Yes Med Rec Note Co-signed by Attending: Coverage Notice Comment: [facility]IENT REHAB - [facility] Last DP export: 11/10/19 1:06 Patient Name: DASIA STRATTON Page [id number] at 1900 All edits/amendments must be made on the electronic document DICTATION DATE: 11/13/191899 EMPLOYEE RELATIONS ADVISOR: PITA 11/13/191899 RPT#: [id number] DC DATE: STATUS: ADM IN [facility] [address] [place] [address] END OF REPORT
--- NOTE | 2019-11-13 19:07 | MORECARE ---
CASE MANAGEMENT DISCHARGE SUMMARY PATIENT: DASIA STRATTON UNIT: [id number] ADM DATE: 11/05/19 AGE: 73 : [birth year] SEX: F ROOM/BED: D.2224 AUTHOR: ALEX,DOC PHYSICIAN: REFERRING PHYSICIAN: JARRED KRUSE MD DATE OF SERVICE: 11/13/19 Discharge Plan Patient Name: DASIA STRATTON Facility: [facility]:[place] : 1945 Planned Disposition: Anticipated Discharge Date: Discharge Date: Expected LOS: Initial Reviewer: [id number] Initial Review Date: 11/06/2019 Generated: 11/13/19 8:07 pm Comments DCP- Discharge Planning Updated by [email or web address]: Natasha Pacheco on 11/13/19 6:[address] CM spoke with patient regarding inpatient rehab DE signed for [facility]. CM faxed records late this evening to [facility] will f/u on Saturday to check and see if they received records.CM will continue to follow and assist as needed with discharge planning / needs DCP- Discharge Planning Updated by [email or web address]: Natasha Pacheco on 11/10/19 1:[address] LATE ENTRY 11/09/19 Patient Name: DASIA STRATTON Admission Status: Elective Accout number: [id number] Admission Date: 11-05-2019 : 1945 Admission Diagnosis: Attending: JARRED SCALES Current LOS: 4 Anticipated DC Date: Planned Disposition: Primary Insurance: HU[employer]NA CHOICE PPO MCR [facility] Discharge Planning Comments: CM met with patient's daughter Jennifer to complete initial dc planning assessment. Patient is currently still on vent. CM educated patient's daughter on the CM role and verbal consent given by patient to complete assessment. Patient lives at home with her where she is independent with her care. At discharge patient plans to return home and feels this is a safe discharge. CM discussed availability of home health, rehab services, and medical equipment. Her daughter will be her cement truck driver home. Patient has a nebulizer and home o2 ( unknown provider) Jennifer denied known discharge needs at this time. CM will continue to follow and will assist as needed with dc plans/needs. Supervisor Concrete Stone Finishing: Natasha Pacheco DCP- Discharge Planning Updated by [email or web address]: Natasha Pacheco on 11/06/19 5:[address] CM attempted to visit with patient regarding discharge planning/ needs. Patient currently on vent no family available. CM will continue to follow and assist as needed with discharge planning / needs DCPIA - Discharge Planning Initial Assessment Updated by [email or web address]: Natasha Pacheco on 11/10/19 1:58 pm * Is the patient Alert and Oriented? Yes * How many steps to enter\exit or inside your home? * PCP ALAN CAREY AP[facility] - DR MALDONADO OFFICE * [facility] * Preadmission Environment Home with Family * ADLs Independent * Equipment Oxygen * Other Equipment HOME 02 AND NEBULIZER * List name and contact numbers for known caregivers / representatives who currently or will assist patient after discharge: JENNIFER RODRIGUEZ - [facility]- [phone] OR [phone] * Verbal permission to speak to the caregivers and representatives has been obtained from the patient. N/A * Community resources currently utilized None * Additional services required to return to the preadmission environment? No * Can the patient safely return to the preadmission environment? Yes * Has this patient been hospitalized within the prior 30 days at any hospital? No Coverage Notice Reviewer: [id number] - Natasha Pacheco Notice Issued Date-Time: 11/13/2019 11:30 Notice Type: Patient Choice Letter Notice Delivered To: Patient Relationship to Patient: Self Turbine Attendant Name: Delivery Method: - Bonita Days: Prior Verbal Notification: Recipient Understood Notice: Yes Recipient Signature: Yes Med Rec Note Co-signed by Attending: Coverage Notice Comment: INPATIENT REHAB - [facility] Last DP export: 11/13/19 6:00 Patient Name: DASIA STRATTON Page [phone] at 1907 All edits/amendments must be made on the electronic document DICTATION DATE: 11/13/191906 GENETIC ENGINEER: PITA 11/13/191906 RPT#: [id number] DC DATE: STATUS: ADM IN [facility] [address] [place] [address] END OF REPORT
[2019-11-14 00:19] VITALS: BP 142/58
--- NOTE | 2019-11-14 02:26 | NUR ---
PT RESTING IN BED. EYES CLOSED. NO SIGNS OF DISTRESS. BREAHTING EVEN AND UNLABORED. IV SITE RT IJ DRESSING CLEAN DRY AND INTACT. NO SIGNS OF INFECTION. 4LO2 NASAL CANNULA. BUTTOCKS REDNESS. OPEN TO AIR. NO LOWER LEG SWELLING PRESENT. BIPAP AT BEDSIDE NEEDED. WILL CONTINUE PLAN OF CARE. CALL LIGHT IN REACH. BED LOWERED AND LOCKED. BED RAILS UPX2.
--- NOTE | 2019-11-14 03:00 | NUR ---
I have reviewed this patient and I concur with the Shift Assessment completed by the Licensed Practical Nurse today this shift.
[2019-11-14 04:54] VITALS: BP 158/62
--- NOTE | 2019-11-14 08:00 | NUR ---
ASSESSMENT PER FLOW SHEET. PT IS WITHOUT DISTRESS.CALL LIGHT IN REACH
[2019-11-14 08:21] VITALS: BP 165/77
[2019-11-14 12:04] LABS: CALC OSMOLALITY 295 mosm/kg (275-300); CALCIUM 7.1 mg/dL (8.5-10.1); CARBON DIOXIDE 38.1 mmol/L (21.0-32.0); CHLORIDE - SERUM 109 mmol/L (98-107); CREATININE - SERUM 0.5 mg/dL (0.6-1.3); GLUCOSE 125 mg/dL (74-106); POTASSIUM - SERUM 4.1 mmol/L (3.5-5.1); SODIUM 148 mmol/L (136-145); eGFR NON AFRICAN AMERICAN > 90 mL/min (90-120)
[2019-11-14 12:05] LABS: UREA NITROGEN 15 mg/dL (7-18)
--- NOTE | 2019-11-14 12:42 | NUR ---
PT ATTEMPTED TO REMOVE BIPAP FOR LUNCH ,BUT BECAME VERY ANXIOUS AND SAID SHE COULDN'T GET HER BREATH.PLACE BACK ON BIPAP
[2019-11-14 12:47] VITALS: BP 167/57
--- NOTE | 2019-11-14 17:18 | NUR ---
HAS BEEN ON BIPAP MOST OF AFTERNOON.PATIENT BACK ON CANULA SO SHE CAN EAT DINNER.SHE IS WITHOUT RESP DISTRESS AT PRESENT.SHE IS SITTING UP AT BEDSIDE.CALL FROM DAUGHTER MITRA FROM [place],PASSWORD CONFIRMED AND UPDATE GIVEN TO MITRA. MITRA'S NUMBER ALSO ADDED TO EMERGENCY CONTACT LIST PER HER REQUEST. SHE ALSO REQUESTED HER SISTER HERE IN [place] BE CALLED FIRST FOR MEDICAL RELATED NEEDS.
[2019-11-14 17:32] VITALS: BP 139/79
--- NOTE | 2019-11-14 18:00 | NUR ---
BACK ON BIPAP PER PT REQUEST.
--- NOTE | 2019-11-14 19:00 | NUR ---
BEDSIDE REPORT RECEIVED AND CARE OF PT ASSUMED. PT LYING IN HIGH UPTON'S POSITION WITH BIPAP IN USE. RIGHT IJ CENTRAL LINE SALINE LOCKED. WILL MONITOR FOR NEEDS.
[2019-11-14 20:22] VITALS: BP 150/64
--- NOTE | 2019-11-14 20:29 | NUR ---
HS MEDICATIONS GIVEN. WILL CONTINUE TO MONITOR FOR NEEDS.
[2019-11-15 00:03] VITALS: BP 142/62
[2019-11-15 04:39] VITALS: BP 136/59
[2019-11-15 05:59] LABS: BASOPHILS 0 % (0-2); EOSINOPHILS 0 % (0-7); HEMATOCRIT 34.7 % (36.0-48.0); HEMOGLOBIN 9.8 g/dL (12-16); IMMATURE GRANULOCYTES 0.9 % (0-5); LYMPHOCYTES 4.5 % (15-50); MCH 26.6 pg (26.0-34.0); MCHC 28.2 g/dL (31.0-37.0); MCV 94.3 fL (80.0-100.0); MEAN PLATELET VOLUME 10.3 fL (7.4-10.4); MONOCYTES 4.8 % (2-11); NEUTROPHILS 89.8 % (40-80); RBC 3.68 10x6/uL (4.00-5.40); RDW 15.2 % (11.5-14.5); WBC 9.8 10x3/uL (4.8-10.8)
[2019-11-15 06:21] LABS: CALC OSMOLALITY 298 mosm/kg (275-300); CALCIUM 7.4 mg/dL (8.5-10.1); CARBON DIOXIDE 36.2 mmol/L (21.0-32.0); CHLORIDE - SERUM 111 mmol/L (98-107); CREATININE - SERUM 0.6 mg/dL (0.6-1.3); GLUCOSE 130 mg/dL (74-106); POTASSIUM - SERUM 4.1 mmol/L (3.5-5.1); SODIUM 148 mmol/L (136-145); eGFR NON AFRICAN AMERICAN > 90 mL/min (90-120)
[2019-11-15 06:24] LABS: PLATELET COUNT 322 10x3/uL (130-400)
[2019-11-15 06:25] LABS: UREA NITROGEN 22 mg/dL (7-18)
--- NOTE | 2019-11-15 07:00 | NUR ---
ASSISTED UP TO BEDSIDE COMMODE. STATES SHE IS FEELING BETTER TODAY.MINIMAL SHORTNESS OF BREATH NOTED.CALL LIGHT IN REACH
--- NOTE | 2019-11-15 08:00 | NUR ---
ASSESSMENT PER FLOW SHEET. PT IS WITHOUT DISTRESS.MONITOR FOR NEEDS.
[2019-11-15 08:49] VITALS: BP 144/60
--- NOTE | 2019-11-15 10:30 | NUR ---
CALL FROM DAUGHTER JORJE,PASSWORD CONFIRMED.UPDATE ON PT STATUS
[2019-11-15 13:43] VITALS: BP 159/71
--- NOTE | 2019-11-15 14:36 | NUR ---
REMAINS WITHOUT DISTRESS.ON HIGHFLOW 3 LITERS
--- NOTE | 2019-11-15 14:54 | NUR ---
OT NOTE: BED MOB WITH CGA; FUNCTIONAL TRANSFER WITH MIN ASSIST. PT REPORTS FEELING BETTER. SET UP FOR FEEDING AND CGA WITH TOILETING. 02 ON 4L. SOB WITH MIN EXERTION. 130-146 JORJE ORTEZ OTR/L
[2019-11-15 16:16] VITALS: BP 150/69
--- NOTE | 2019-11-15 17:55 | NUR ---
CALL FROM DAUGHTER MITRA IN [place],PASSWORD CONFIRMED. MITRA STATES HER MOM WAS BEING EVALUATED FOR CPAP AT FOR HOME BEFORE SHE MOVED HERE WITH HER SISTER JORJE.SHE STATES THAT FOLLOW UP WAS NEVER DONE AND WOULD LIKE TESTING DONE IF POSSIBLE BEFORE PATIENT DISCHARGES HOME
--- NOTE | 2019-11-15 18:49 | NUR ---
OFF BIPAP MOST OF DAY. SHE HAS TOOK A NAP AND WAS PLACED ON BIPAP WHILE SLEEPING. SHE IS WITHOUT COMPLAINTS AND SITTING UP AT BEDSIDE.CONT PLAN OF CARE
--- NOTE | 2019-11-15 19:30 | NUR ---
PATIENT SITTING UP IN BED. BIPAP ON. R IJ CENTRAL LINE, DRESSING C/D/I. PATIENT STATES SHE HAS NO NEEDS AT THIS TIME. BED RAILS X2. BEDSIDE COMODE NEXT TO BED. CALL LIGHT AND BEDSIDE TABLE WITHIN REACH.
[2019-11-15 20:35] VITALS: BP 154/78
[2019-11-16 01:20] VITALS: BP 120/57
[2019-11-16 05:21] VITALS: BP 140/64
[2019-11-16 08:01] VITALS: BP 163/67
[2019-11-16 11:23] LABS: BASOPHILS 0.1 % (0-2); EOSINOPHILS 0 % (0-7); HEMATOCRIT 34.4 % (36.0-48.0); IMMATURE GRANULOCYTES 0.6 % (0-5); LYMPHOCYTES 6.6 % (15-50); MCHC 29.1 g/dL (31.0-37.0); MCV 92.7 fL (80.0-100.0); MONOCYTES 9.4 % (2-11); NEUTROPHILS 83.3 % (40-80); PLATELET COUNT 271 10x3/uL (130-400); RBC 3.71 10x6/uL (4.00-5.40); RDW 15.2 % (11.5-14.5); WBC 9.6 10x3/uL (4.8-10.8)
[2019-11-16 11:42] LABS: ALBUMIN 2.5 g/dL (3.4-5.0); ALKALINE PHOSPHATASE 75 U/L (46-116); ALT (SGPT) 26 U/L (10-68); BILIRUBIN - TOTAL 0.32 mg/dL (0.2-1.3); CALC OSMOLALITY 295 mosm/kg (275-300); CALCIUM 8.2 mg/dL (8.5-10.1); CARBON DIOXIDE 36.9 mmol/L (21.0-32.0); CHLORIDE - SERUM 109 mmol/L (98-107); CREATININE - SERUM 0.5 mg/dL (0.6-1.3); GLUCOSE 101 mg/dL (74-106); POTASSIUM - SERUM 4.3 mmol/L (3.5-5.1); PROTEIN - SERUM 5.3 g/dL (6.4-8.2); SODIUM 148 mmol/L (136-145); UREA NITROGEN 19 mg/dL (7-18); eGFR NON AFRICAN AMERICAN > 90 mL/min (90-120)
--- NOTE | 2019-11-16 12:19 | MORECARE ---
CASE MANAGEMENT DISCHARGE SUMMARY PATIENT: DASIA STRATTON UNIT: [id number] ADM DATE: 11/05/19 AGE: 73 : [birth year] SEX: F ROOM/BED: D.2224 AUTHOR: ALEX,DOC PHYSICIAN: REFERRING PHYSICIAN: JARRED KRUSE MD DATE OF SERVICE: 11/16/19 Discharge Plan Patient Name: DASIA STRATTON Facility: [facility]:[place] : 1945 Planned Disposition: Anticipated Discharge Date: Discharge Date: Expected LOS: Initial Reviewer: [email or web address] Initial Review Date: 11/06/2019 Generated: 11/16/19 1:18 pm DCP- Discharge Planning Updated by [email or web address]: Natasha Pacheco on 11/13/19 6:[address] CM spoke with patient regarding inpatient rehab DE signed for [facility]. CM faxed records late this evening to [facility] will f/u on Saturday to check and see if they received records.CM will continue to follow and assist as needed with discharge planning / needs DCP- Discharge Planning Updated by [email or web address]: Natasha Pacheco on 11/10/19 1:[address] LATE ENTRY 11/09/19 Patient Name: DASIA STRATTON Admission Status: Elective Accout number: [id number] Admission Date: 11-05-2019 : 1945 Admission Diagnosis: Attending: JARRED SCALES Current LOS: 4 Anticipated DC Date: Planned Disposition: Primary Insurance: HUMANA CHOICE O [facility] Discharge Planning Comments: CM met with patient's daughter Jennifer to complete initial dc planning assessment. Patient is currently still on vent. CM educated patient's daughter on the CM role and verbal consent given by patient to complete assessment. Patient lives at home with her where she is independent with her care. At discharge patient plans to return home and feels this is a safe discharge. CM discussed availability of home health, rehab services, and medical equipment. Her daughter will be her driver starting gate home. Patient has a nebulizer and home o2 ( unknown provider) Jennifer denied known discharge needs at this time. CM will continue to follow and will assist as needed with dc plans/needs. Appeals Examiner: Natasha Pacheco DCP- Discharge Planning Updated by [email or web address]: Natasha Pacheco on 11/06/19 5:[address] CM attempted to visit with patient regarding discharge planning/ needs. Patient currently on vent no family available. CM will continue to follow and assist as needed with discharge planning / needs DCPIA - Discharge Planning Initial Assessment Updated by [email or web address]: Natasha Pacheco on 11/10/19 1:58 pm * Is the patient Alert and Oriented? Yes * How many steps to enter\exit or inside your home? * PCP ALAN CAREY APN - DR MALDONADO OFFICE * Pharmacy [facility] * Preadmission Environment Home with Family * ADLs Independent * Equipment Oxygen * Other Equipment HOME 02 AND NEBULIZER * List name and contact numbers for known caregivers / representatives who currently or will assist patient after discharge: JENNIFER RODRIGUEZ - DAUGHTER- [phone] OR [phone] * Verbal permission to speak to the caregivers and representatives has been obtained from the patient. N/A * Community resources currently utilized None * Additional services required to return to the preadmission environment? No * Can the patient safely return to the preadmission environment? Yes * Has this patient been hospitalized within the prior 30 days at any hospital? No External Providers External Provider: OTHER-OTHER Next Contact Date: Service Request Date: Service Type: Resolution: Reviewer: Comments: Coverage Notice Reviewer: [id number] - Natasha Pacheco Notice Issued Date-Time: 11/13/2019 11:30 Notice Type: Patient Choice Letter Notice Delivered To: Patient Relationship to Patient: Self Global Sourcing Manager Name: Delivery Method: - Bonita Days: Prior Verbal Notification: Recipient Understood Notice: Yes Recipient Signature: Yes Med Rec Note Co-signed by Attending: Coverage Notice Comment: [facility]AB - [facility] Last DP export: 11/13/19 6:07 Patient Name: DASIA STRATTON Page [id number] at 1219 All edits/amendments must be made on the electronic document DICTATION DATE: 11/16/191217 VALUE STREAM COACH: PITA 11/16/191217 RPT#: [id number] DC DATE: STATUS: ADM IN [facility] [address] [place] [address] END OF REPORT
--- NOTE | 2019-11-16 12:33 | MORECARE ---
CASE MANAGEMENT DISCHARGE SUMMARY PATIENT: DASIA STRATTON UNIT: [id number] ADM DATE: 11/05/19 AGE: 73 : 47 SEX: F ROOM/BED: D.2224 AUTHOR: ALEX,DOC PHYSICIAN: REFERRING PHYSICIAN: JARRED KRUSE MD DATE OF SERVICE: 11/16/19 Discharge Plan Patient Name: DASIA STRATTON Facility: [facility]:[place] : 1945 Planned Disposition: Anticipated Discharge Date: Discharge Date: Expected LOS: Initial Reviewer: [id number] Initial Review Date: 11/06/2019 Generated: 11/16/19 1:32 pm Comments DCP- Discharge Planning Updated by [email or web address]: Coleen Florence on 11/16/19 11:[address] I called Mariluz at [facility] rehab to f/u on referral sent on Saturday by Cheryle. Mariluz states she has not gotten a referral for this patient. I faxed referral to [phone]. I attempted to call [phone] to speak with daughter per her request and left a message on answering machine with my call back number. She has managed medicare and will require preauthorization. CM will continue to follow and assist with discharge planning/needs. DCP- Discharge Planning Updated by [id number]: Natasha Pacheco on 11/13/19 6:[address] CM spoke with patient regarding inpatient rehab DE signed for [facility]. [facility] to check and see if they received records.CM will continue to follow and assist as needed with discharge planning / needs DCP- Discharge Planning Updated by [email or web address]: Natasha Pacheco on 11/10/19 1:[address] LATE ENTRY 11/09/19 Patient Name: DASIA STRATTON Admission Status: Elective Accout number: [id number] Admission Date: 11-05-2019 : 1945 Admission Diagnosis: Attending: JARRED SCALES Current LOS: 4 Anticipated DC Date: Planned Disposition: Primary Insurance: HUMANA CHOICE PPO MCR ADVANT Discharge Planning Comments: CM met with patient's daughter Jennifer to complete initial dc planning assessment. Patient is currently still on vent. CM educated patient's daughter on the CM role and verbal consent given by patient to complete assessment. Patient lives at home with her where she is independent with her care. At discharge patient plans to return home and feels this is a safe discharge. CM discussed availability of home health, rehab services, and medical equipment. Her daughter will be her class a regional truck driver home. Patient has a nebulizer and home o2 ( unknown provider) Jennifer denied known discharge needs at this time. CM will continue to follow and will assist as needed with dc plans/needs. Adjunct Instructor Of Women'S Studies: Natasha Pacheco DCP- Discharge Planning Updated by [id number]: Natasha Pacheco on 11/06/19 5:[address] CM attempted to visit with patient regarding discharge planning/ needs. Patient currently on vent no family available. CM will continue to follow and assist as needed with discharge planning / needs DCPIA - Discharge Planning Initial Assessment Updated by [id number]: Natasha Pacheco on 11/10/19 1:58 pm * Is the patient Alert and Oriented? Yes * How many steps to enter\exit or inside your home? * PCP ALAN CAREY APN - DR MALDONADO OFFICE * Pharmacy [facility] * Preadmission Environment Home with Family * ADLs Independent * Equipment Oxygen * Other Equipment HOME 02 AND NEBULIZER * List name and contact numbers for known caregivers / representatives who currently or will assist patient after discharge: JENNIFER RODRIGUEZ - DAUGHTER- [phone] OR [phone] * Verbal permission to speak to the caregivers and representatives has been obtained from the patient. N/A * Community resources currently utilized None * Additional services required to return to the preadmission environment? No * Can the patient safely return to the preadmission environment? Yes * Has this patient been hospitalized within the prior 30 days at any hospital? No Coverage Notice Reviewer: [id number] - Natasha Pacheco Notice Issued Date-Time: 11/13/2019 11:30 Notice Type: Patient Choice Letter Notice Delivered To: Patient Relationship to Patient: Self Caser Shoe Parts Name: Delivery Method: - Bonita Days: Prior Verbal Notification: Recipient Understood Notice: Yes Recipient Signature: Yes Med Rec Note Co-signed by Attending: Coverage Notice Comment: INPATIENT REHAB - [facility] Last DP export: 11/16/19 11:19 Patient Name: DASIA STRATTON Page [id number] at 1233 All edits/amendments must be made on the electronic document DICTATION DATE: 11/16/19 1232 FOREST PATHOLOGIST: PITA 11/16/19 1232 RPT#: [id number] DC DATE: STATUS: ADM IN [facility] [address] [place] [address] END OF REPORT
[2019-11-16 12:43] VITALS: BP 164/78
--- NOTE | 2019-11-16 12:56 | NUR ---
OT NOTE: PT PERFORMED VERY WELL TODAY. BED MOB WITH SPV; SIT TO STAND WITH MIN ASSIST; 02 AT 4L; AMB APPROX 50 FT WITH WALKER, O2, AND MIN ASSIST. RETURNED TO ROOM. TOILET TRANSFER WITH CGA; ABLE TO WASH UPPER BODY, CHEST, AND FACE WITH SET UP; REQUIRED ASSIST WITH BACK AND LES. APPLIED BARRIER CREAM TO PERINEAL AREA..WHICH WAS RED AND PAINFUL. ABLE TO AMB AROUND ROOM WITH WALKER AND CGA.. PT DID NOT GET SOB DURING THERAPY.. REST BREAKS TAKEN NEEDED. JORJE ORTEZ, OTR/L
--- NOTE | 2019-11-16 13:15 | NUR ---
Nutrition follow-up: Diet: Regular mechanical soft with thin liquids PO intake ~60% average of meals Labs reviewed Wt: 115# +BM, loose Appetite improving. RDN following.
[2019-11-16 15:51] VITALS: BP 129/74
--- NOTE | 2019-11-16 16:11 | MORECARE ---
CASE MANAGEMENT DISCHARGE SUMMARY PATIENT: DASIA STRATTON UNIT: [id number] ADM DATE: 11/05/19 AGE: 73 : 47 SEX: F ROOM/BED: D.2224 AUTHOR: ALEX,DOC PHYSICIAN: REFERRING PHYSICIAN: JARRED KRUSE MD DATE OF SERVICE: 11/16/19 Discharge Plan Patient Name: DASIA STRATTON Facility: [facility]:[place] : 1945 Planned Disposition: Anticipated Discharge Date: Discharge Date: Expected LOS: Initial Reviewer: [id number] Initial Review Date: 11/06/2019 Generated: 11/16/19 5:11 pm Comments DCP- Discharge Planning Updated by [email or web address]: Coleen Florence on 11/16/19 11:[address] I called Mariluz at [facility] rehab to f/u on referral sent on Saturday by Cheryle. Mariluz states she has not gotten a referral for this patient. I faxed referral to [phone]. I attempted to call [phone] to speak with daughter per her request and left a message on answering machine with my call back number. She has managed medicare and will require preauthorization. CM will continue to follow and assist with discharge planning/needs. DCP- Discharge Planning Updated by [email or web address]: Natasha Pacheco on 11/13/19 6:[address] CM spoke with patient regarding inpatient rehab DE signed for [facility]. [facility] to check and see if they received records.CM will continue to follow and assist as needed with discharge planning / needs DCP- Discharge Planning Updated by [email or web address]: Natasha Pacheco on 11/10/19 1:[address] LATE ENTRY 11/09/19 Patient Name: DASIA STRATTON Admission Status: Elective Accout number: [id number] Admission Date: 11-05-2019 : 1945 Admission Diagnosis: Attending: JARRED SCALES Current LOS: 4 Anticipated DC Date: Planned Disposition: Primary Insurance: HUMANA CHOICE PPO MCR ADVANT Discharge Planning Comments: CM met with patient's daughter Jennifer to complete initial dc planning assessment. Patient is currently still on vent. CM educated patient's daughter on the CM role and verbal consent given by patient to complete assessment. Patient lives at home with her where she is independent with her care. At discharge patient plans to return home and feels this is a safe discharge. CM discussed availability of home health, rehab services, and medical equipment. Her daughter will be her goat driver home. Patient has a nebulizer and home o2 ( unknown provider) Jennifer denied known discharge needs at this time. CM will continue to follow and will assist as needed with dc plans/needs. Utility Bill Complaints Investigator: Natasha Pacheco DCP- Discharge Planning Updated by [id number]: Natasha Pacheco on 11/06/19 5:[address] CM attempted to visit with patient regarding discharge planning/ needs. Patient currently on vent no family available. CM will continue to follow and assist as needed with discharge planning / needs DCPIA - Discharge Planning Initial Assessment Updated by [id number]: Natasha Pacheco on 11/10/19 1:58 pm * Is the patient Alert and Oriented? Yes * How many steps to enter\exit or inside your home? * PCP ALAN CAREY APN - DR MALDONADO OFFICE * Pharmacy [facility] * Preadmission Environment Home with Family * ADLs Independent * Equipment Oxygen * Other Equipment HOME 02 AND NEBULIZER * List name and contact numbers for known caregivers / representatives who currently or will assist patient after discharge: JENNIFER GARCÍA - DAUGHTER- [phone] OR [phone] * Verbal permission to speak to the caregivers and representatives has been obtained from the patient. N/A * Community resources currently utilized None * Additional services required to return to the preadmission environment? No * Can the patient safely return to the preadmission environment? Yes * Has this patient been hospitalized within the prior 30 days at any hospital? No External Providers External Provider: Napoleon Next Contact Date: Service Request Date: Service Type: Resolution: Reviewer: Comments: Coverage Notice Reviewer: [id number] - Natasha Pacheco Notice Issued Date-Time: 11/13/2019 11:30 Notice Type: Patient Choice Letter Notice Delivered To: Patient Relationship to Patient: Self Care Transition Mgr Name: Delivery Method: - Bonita Days: Prior Verbal Notification: Recipient Understood Notice: Yes Recipient Signature: Yes Med Rec Note Co-signed by Attending: Coverage Notice Comment: INPATIENT REHAB - [place] OR [facility] Reviewer: [id number] James Florence Notice Issued Date-Time: 11/16/2019 16:05 Notice Type: Patient Choice Letter Notice Delivered To: Family Member Relationship to Patient: Daughter Care Transition Mgr Name: Jennifer García Delivery Method: PHONE - Phone Bonita Days: Prior Verbal Notification: Recipient Understood Notice: Yes Recipient Signature: Med Rec Note Co-signed by Attending: Coverage Notice Comment: [facility] for [facility] if denied for Inpatient rehab and [facility] if she can change companies. Last DP export: 11/16/19 11:32 Patient Name: DASIA STRATTON Page 25509 at 1611 All edits/amendments must be made on the electronic document DICTATION DATE: 11/16/19 161 BIODIESEL PLANT SUPERINTENDENT: PITA 11/16/19 1611 RPT#: [id number] ID DATE: STATUS: ADM IN [facility] [address] [place] [address] END OF REPORT
--- NOTE | 2019-11-16 16:19 | MORECARE ---
CASE MANAGEMENT DISCHARGE SUMMARY PATIENT: DASIA STRATTON UNIT: [id number] ADM DATE: 11/05/19 AGE: 73 : 47 SEX: F ROOM/BED: D.2224 AUTHOR: ALEX,DOC PHYSICIAN: REFERRING PHYSICIAN: JARRED KRUSE MD DATE OF SERVICE: 11/16/19 Discharge Plan Patient Name: DASIA STRATTON Facility: [facility]:[place] : 1945 Planned Disposition: Anticipated Discharge Date: Discharge Date: Expected LOS: Initial Reviewer: [id number] Initial Review Date: 11/06/2019 Generated: 11/16/19 5:18 pm Comments DCP- Discharge Planning Updated by [id number]: Coleen Florence on 11/16/19 3:[address] Daughter, Jennifer, called back and states if she is denied inpatient rehab in [place], [facility]. She states her DME company for oxygen is [employer] in [place], but she states she would like to change to [facility] if she is able to switch companies. I have called Jason with [facility] and face sheet faxed. CM will continue to follow and assist with discharge planning/needs. DCP- Discharge Planning Updated by [email or web address]: Coleen Florence on 11/16/19 11:[address] I called Mariluz at [facility] rehab to f/u on referral sent on Saturday by Cheryle. Mariluz states she has not gotten a referral for this patient. I faxed referral to [phone]. I attempted to call [phone] to speak with daughter per her request and left a message on answering machine with my call back number. She has managed medicare and will require preauthorization. CM will continue to follow and assist with discharge planning/needs. DCP- Discharge Planning Updated by [id number]: Natasha Pacheco on 11/13/19 6:[address] CM spoke with patient regarding inpatient rehab DE signed for [facility]. [facility] to check and see if they received records.CM will continue to follow and assist as needed with discharge planning / needs DCP- Discharge Planning Updated by [id number]: Natasha Pacheco on 11/10/19 1:[address] LATE ENTRY 11/09/19 Patient Name: DASIA STRATTON Admission Status: Elective Accout number: [id number] Admission Date: 11-05-2019 : 1945 Admission Diagnosis: Attending: JARRED SCALES Current LOS: 4 Anticipated DC Date: Planned Disposition: Primary Insurance: HUMANA CHOICE PPO MCR ADVANT Discharge Planning Comments: CM met with patient's daughter Jennifer to complete initial dc planning assessment. Patient is currently still on vent. CM educated patient's daughter on the CM role and verbal consent given by patient to complete assessment. Patient lives at home with her where she is independent with her care. At discharge patient plans to return home and feels this is a safe discharge. CM discussed availability of home health, rehab services, and medical equipment. Her daughter will be her route delivery service driver home. Patient has a nebulizer and home o2 ( unknown provider) Jennifer denied known discharge needs at this time. CM will continue to follow and will assist as needed with dc plans/needs. Artificial Fly Tier: Natasha Pacheco DCP- Discharge Planning Updated by [email or web address]: Natasha Pacheco on 11/06/19 5:[address] CM attempted to visit with patient regarding discharge planning/ needs. Patient currently on vent no family available. CM will continue to follow and assist as needed with discharge planning / needs DCPIA - Discharge Planning Initial Assessment Updated by [email or web address]: Natasha Pacheco on 11/10/19 1:58 pm * Is the patient Alert and Oriented? Yes * How many steps to enter\exit or inside your home? * PCP ALAN CAREY APN - DR MALDONADO OFFICE * Pharmacy [facility] * Preadmission Environment Home with Family * ADLs Independent * Equipment Oxygen * Other Equipment HOME 02 AND NEBULIZER * List name and contact numbers for known caregivers / representatives who currently or will assist patient after discharge: JENNIFER GARCÍA - DAUGHTER- [phone] OR [phone] * Verbal permission to speak to the caregivers and representatives has been obtained from the patient. N/A * Community resources currently utilized None * Additional services required to return to the preadmission environment? No * Can the patient safely return to the preadmission environment? Yes * Has this patient been hospitalized within the prior 30 days at any hospital? No Coverage Notice Reviewer: [email or web address] James aPcheco Notice Issued Date-Time: 11/13/2019 11:30 Notice Type: Patient Choice Letter Notice Delivered To: Patient Relationship to Patient: Self Copy Chaser Name: Delivery Method: - Bonita Days: Prior Verbal Notification: Recipient Understood Notice: Yes Recipient Signature: Yes Med Rec Note Co-signed by Attending: Coverage Notice Comment: INPATIENT REHAB - [place] OR [facility] Reviewer: [email or web address] - Coleen Florence Notice Issued Date-Time: 11/16/2019 16:05 Notice Type: Patient Choice Letter Notice Delivered To: Family Member Relationship to Patient: Daughter Copy Chaser Name: Jennifer García Delivery Method: PHONE - Phone Bonita Days: Prior Verbal Notification: Recipient Understood Notice: Yes Recipient Signature: Med Rec Note Co-signed by Attending: Coverage Notice Comment: [place] for [employer] if denied for Inpatient rehab and [facility] if she can change companies. Last DP export: 11/16/19 3:11 Patient Name: DASIA STRATTON Page 23300 at 1619 All edits/amendments must be made on the electronic document DICTATION DATE: 11/16/191617 URANIUM PROCESSING SUPERVISOR: PITA 11/16/191617 RPT#: [id number] DC DATE: STATUS: ADM IN [facility] [address] [place] [address] END OF REPORT
--- NOTE | 2019-11-16 16:35 | MORECARE ---
CASE MANAGEMENT DISCHARGE SUMMARY PATIENT: DASIA STRATTON UNIT: [id number] ADM DATE: 11/05/19 AGE: 73 : 47 SEX: F ROOM/BED: D.2224 AUTHOR: ALEX,DOC PHYSICIAN: REFERRING PHYSICIAN: JARRED KRUSE MD DATE OF SERVICE: 11/16/19 Discharge Plan Patient Name: DASIA STRATTON Facility: [facility]:[place] : 1945 Planned Disposition: Anticipated Discharge Date: Discharge Date: Expected LOS: Initial Reviewer: [email or web address] Initial Review Date: 11/06/2019 Generated: 11/16/19 5:35 pm Comments DCP- Discharge Planning Updated by [email or web address]: Coleen Ludivina on 11/16/19 3:[address] I called [facility] rehab, they have received the referral. I spoke with Cyndi at [facility] and they have a contract with [facility], so the patient can switch to [facility] any time she would like to switch DME companies. She will need to requalify for home oxygen with a walk test and be in a chronic stable states prior to discharge. CM will continue to follow and assist with discharge planning/needs. DCP- Discharge Planning Updated by [id number]: Coleen Ludivina on 11/16/19 3:[address] Daughter, Jennifer, called back and states if she is denied inpatient rehab in [place], she would like a referral to [facility]. She states her DME company for oxygen is [employer] in [place], but she states she would like to change to [facility] if she is able to switch companies. I have called Jason with [facility] and face sheet faxed. CM will continue to follow and assist with discharge planning/needs. DCP- Discharge Planning Updated by [id number]: Coleen Florence on 11/16/19 11:[address] I called Mariluz at [facility] inpatient rehab to f/u on referral sent on Saturday by Cheryle. Mariluz states she has not gotten a referral for this patient. I faxed referral to [phone]. I attempted to call [phone] to speak with daughter per her request and left a message on answering machine with my call back number. She has managed medicare and will require preauthorization. CM will continue to follow and assist with discharge planning/needs. DCP- Discharge Planning Updated by [email or web address]: Natasha Pacheco on 11/13/19 6:[address] CM spoke with patient regarding inpatient rehab DE signed for [facility]. CM faxed records late this evening to [facility] will f/u on Saturday to check and see if they received records.CM will continue to follow and assist as needed with discharge planning / needs DCP- Discharge Planning Updated by [id number]: Natasha Pacheco on 11/10/19 1:[address] LATE ENTRY 11/09/19 Patient Name: DASIA STRATTON Admission Status: Elective Accout number: [id number] Admission Date: 11-05-2019 : 1945 Admission Diagnosis: Attending: JARRED SCALES Current LOS: 4 Anticipated DC Date: Planned Disposition: Primary Insurance: HUMANA CHOICE PPO [facility] Discharge Planning Comments: CM met with patient's daughter Jennifer to complete initial dc planning assessment. Patient is currently still on vent. CM educated patient's daughter on the CM role and verbal consent given by patient to complete assessment. Patient lives at home with her where she is independent with her care. At discharge patient plans to return home and feels this is a safe discharge. CM discussed availability of home health, rehab services, and medical equipment. Her daughter will be her furniture mover driver home. Patient has a nebulizer and home o2 ( unknown provider) Jennifer denied known discharge needs at this time. CM will continue to follow and will assist as needed with dc plans/needs. Shot Blaster: Natasha Pacheco DCP- Discharge Planning Updated by [email or web address]: Natasha Pacheco on 11/06/19 5:[address] CM attempted to visit with patient regarding discharge planning/ needs. Patient currently on vent no family available. CM will continue to follow and assist as needed with discharge planning / needs DCPIA - Discharge Planning Initial Assessment Updated by [email or web address]: Natasha Pacheco on 11/10/19 1:58 pm * Is the patient Alert and Oriented? Yes * How many steps to enter\exit or inside your home? * PCP ALAN CAREY APN - DR MALDONADO OFFICE * Pharmacy [facility] * Preadmission Environment Home with Family * ADLs Independent * Equipment Oxygen * Other Equipment HOME 02 AND NEBULIZER * List name and contact numbers for known caregivers / representatives who currently or will assist patient after discharge: JENNIFER GARCÍA - DAUGHTER- [phone] OR [phone] * Verbal permission to speak to the caregivers and representatives has been obtained from the patient. N/A * Community resources currently utilized None * Additional services required to return to the preadmission environment? No * Can the patient safely return to the preadmission environment? Yes * Has this patient been hospitalized within the prior 30 days at any hospital? No Coverage Notice Reviewer: [id number] James Pacheco Notice Issued Date-Time: 11/13/2019 11:30 Notice Type: Patient Choice Letter Notice Delivered To: Patient Relationship to Patient: Self Hemstitcher Name: Delivery Method: - Bonita Days: Prior Verbal Notification: Recipient Understood Notice: Yes Recipient Signature: Yes Med Rec Note Co-signed by Attending: Coverage Notice Comment: INPATIENT REHAB - [place] OR [facility] Reviewer: [id number] - Coleen Florence Notice Issued Date-Time: 11/16/2019 16:05 Notice Type: Patient Choice Letter Notice Delivered To: Family Member Relationship to Patient: Daughter Hemstitcher Name: Jennifer García Delivery Method: PHONE - Phone Bonita Days: Prior Verbal Notification: Recipient Understood Notice: Yes Recipient Signature: Med Rec Note Co-signed by Attending: Coverage Notice Comment: DE for [facility] if denied for Inpatient rehab and [facility] if she can change companies. Last DP export: 11/16/19 3:19 Patient Name: DASIA STRATTON Page [id number] at 1635 All edits/amendments must be made on the electronic document DICTATION DATE: 11/16/19 1635 METER CHANGES RECORDS CLERK: PITA 11/16/19 1635 RPT#: [id number] DC DATE: STATUS: ADM IN [facility] [address] [place] [address] END OF REPORT
--- NOTE | 2019-11-16 16:51 | MORECARE ---
CASE MANAGEMENT DISCHARGE SUMMARY PATIENT: DASIA STRATTON UNIT: [id number] ADM DATE: 11/05/19 AGE: 73 : 47 SEX: F ROOM/BED: D.2224 AUTHOR: ALEX,DOC PHYSICIAN: REFERRING PHYSICIAN: JARRED KRUSE MD DATE OF SERVICE: 11/16/19 Discharge Plan Patient Name: DASIA STRATTON Facility: [facility]:[place] : 1945 Planned Disposition: Anticipated Discharge Date: Discharge Date: Expected LOS: Initial Reviewer: [email or web address] Initial Review Date: 11/06/2019 Generated: 11/16/19 5:51 pm Comments DCP- Discharge Planning Updated by [id number]: Coleen Ludivina on 11/16/19 3:[address] [facility] rehab will not be able to accept patient on home BIPAP. If the physician determines she needs a BIPAP, the physician will need or order Bipap for home and I will contact [facility]. She will need a new walk test and orders and clinical faxed to [facility]. CM will continue to follow and assist with discharge planning/needs. DCP- Discharge Planning Updated by [id number]: Coleen Ludivina on 11/16/19 3:[address] I called [facility] rehab, they have received the referral. I spoke with Cyndi at [facility] and they have a contract with [facility], so the patient can switch to [facility] any time she would like to switch DME companies. She will need to requalify for home oxygen with a walk test and be in a chronic stable states prior to discharge. CM will continue to follow and assist with discharge planning/needs. DCP- Discharge Planning Updated by [id number]: Coleen Ludivina on 11/16/19 3:[address] Daughter, Jennifer, called back and states if she is denied inpatient rehab in [place], she would like a referral to [facility]. She states her DME company for oxygen is [employer] in [place], but she states she would like to change to [facility] if she is able to switch companies. I have called Jason with [facility] and face sheet faxed. CM will continue to follow and assist with discharge planning/needs. DCP- Discharge Planning Updated by [id number]: Coleen Florence on 11/16/19 11:[address] I called Mariluz at [facility] rehab to f/u on referral sent on Saturday by Cheryle. Mariluz states she has not gotten a referral for this patient. I faxed referral to [phone]. I attempted to call [phone] to speak with daughter per her request and left a message on answering machine with my call back number. She has managed medicare and will require preauthorization. CM will continue to follow and assist with discharge planning/needs. DCP- Discharge Planning Updated by [id number]: Natasha Pacheco on 11/13/19 6:[address] CM spoke with patient regarding inpatient rehab DE signed for [facility]. CM faxed records late this evening to [place] [facility] will f/u on Saturday to check and see if they received records.CM will continue to follow and assist as needed with discharge planning / needs DCP- Discharge Planning Updated by [id number]: Natasha Pacheco on 11/10/19 1:[address] LATE ENTRY 11/09/19 Patient Name: DASIA STRATTON Admission Status: Elective Accout number: [id number] Admission Date: 11-05-2019 : 1945 Admission Diagnosis: Attending: JARRED SCALES Current LOS: 4 Anticipated DC Date: Planned Disposition: Primary Insurance: HUMANA CHOICE PPO [facility] Discharge Planning Comments: CM met with patient's daughter Jennifer to complete initial dc planning assessment. Patient is currently still on vent. CM educated patient's daughter on the CM role and verbal consent given by patient to complete assessment. Patient lives at home with her where she is independent with her care. At discharge patient plans to return home and feels this is a safe discharge. CM discussed availability of home health, rehab services, and medical equipment. Her daughter will be her tour driver home. Patient has a nebulizer and home o2 ( unknown provider) Jennifer denied known discharge needs at this time. CM will continue to follow and will assist as needed with dc plans/needs. Corporate Legal Assistant: Natasha Pacheco DCP- Discharge Planning Updated by [email or web address]: Natasha Pacheco on 11/06/19 5:[address] CM attempted to visit with patient regarding discharge planning/ needs. Patient currently on vent no family available. CM will continue to follow and assist as needed with discharge planning / needs DCPIA - Discharge Planning Initial Assessment Updated by [id number]: Natasha Pacheco on 11/10/19 1:58 pm * Is the patient Alert and Oriented? Yes * How many steps to enter\exit or inside your home? * PCP ALAN CAREY [facility] - DR MALDONADO OFFICE * Pharmacy [facility] * Preadmission Environment Home with Family * ADLs Independent * Equipment Oxygen * Other Equipment HOME 02 AND NEBULIZER * List name and contact numbers for known caregivers / representatives who currently or will assist patient after discharge: JENNIFER GARCÍA - DAUGHTER- [phone] OR [phone] * Verbal permission to speak to the caregivers and representatives has been obtained from the patient. N/A * Community resources currently utilized None * Additional services required to return to the preadmission environment? No * Can the patient safely return to the preadmission environment? Yes * Has this patient been hospitalized within the prior 30 days at any hospital? No Coverage Notice Reviewer: [id number] - Natasha Pacheco Notice Issued Date-Time: 11/13/2019 11:30 Notice Type: Patient Choice Letter Notice Delivered To: Patient Relationship to Patient: Self Large Engine Assembler Name: Delivery Method: - Bonita Days: Prior Verbal Notification: Recipient Understood Notice: Yes Recipient Signature: Yes Med Rec Note Co-signed by Attending: Coverage Notice Comment: INPATIENT REHAB - [place] OR [facility] Reviewer: [id number] - Coleen Florence Notice Issued Date-Time: 11/16/2019 16:05 Notice Type: Patient Choice Letter Notice Delivered To: Family Member Relationship to Patient: Daughter Large Engine Assembler Name: Jennifer García Delivery Method: PHONE - Phone Bonita Days: Prior Verbal Notification: Recipient Understood Notice: Yes Recipient Signature: Med Rec Note Co-signed by Attending: Coverage Notice Comment: DE for [employer] if denied for Inpatient rehab and [facility] if she can change companies. Last DP export: 11/16/19 3:35 Patient Name: DASIA TSRATTON Page 11842 at 1651 All edits/amendments must be made on the electronic document DICTATION DATE: 11/16/191650 OWNER OPERATOR TANKER TRUCK DRIVER: PITA 11/16/191650 RPT#: [id number] DC DATE: STATUS: ADM IN [facility] [address] [place] [address] END OF REPORT
--- NOTE | 2019-11-16 18:45 | NUR ---
PATIENT IN BED WITH IV INTACT. NO COMPLAINTS OR SIGNS OF DISTRESS. O2 ON AND WORKING. CALL LIGHT WITHIN REACH.
[2019-11-16 19:20] VITALS: BP 140/64
--- NOTE | 2019-11-17 02:44 | NUR ---
PT RESTING IN BED. EYES CLOSED. NO SIGNS OF DISTRESS. BIPAP ON. BREATHING EVEN AND UNLABORED. IV SITE RT IF DRESSING CLEAN DRY AND ITNACT. NO SIGNS OF INFECTION. BOWEL SOUNDS ACTIVE. BUTTOCKS RED. NO LOWER LEG SWELLING PRESENT. WILL CONTINUE PLAN OF CARE. CALL LIGHT IN REACH. BED LOWERED AND LOCKED. BED RAILS UPX2.
[2019-11-17 04:00] VITALS: BP 145/74
--- NOTE | 2019-11-17 04:00 | NUR ---
I have reviewed this patient and I concur with the Shift Assessment completed by the Licensed Practical Nurse today this shift.
[2019-11-17 04:59] LABS: BASOPHILS 0 % (0-2); EOSINOPHILS 0 % (0-7); HEMATOCRIT 33.7 % (36.0-48.0); HEMOGLOBIN 9.9 g/dL (12-16); IMMATURE GRANULOCYTES 0.6 % (0-5); LYMPHOCYTES 4.1 % (15-50); MCH 27.1 pg (26.0-34.0); MCHC 29.4 g/dL (31.0-37.0); MCV 92.3 fL (80.0-100.0); MEAN PLATELET VOLUME 9.9 fL (7.4-10.4); MONOCYTES 3.3 % (2-11); PLATELET COUNT 278 10x3/uL (130-400); RBC 3.65 10x6/uL (4.00-5.40); RDW 15.2 % (11.5-14.5)
[2019-11-17 05:02] VITALS: BP 138/61
[2019-11-17 05:14] LABS: CALCIUM 8.1 mg/dL (8.5-10.1); CARBON DIOXIDE 35.3 mmol/L (21.0-32.0); CHLORIDE - SERUM 109 mmol/L (98-107); POTASSIUM - SERUM 4.5 mmol/L (3.5-5.1); SODIUM 146 mmol/L (136-145); UREA NITROGEN 22 mg/dL (7-18); eGFR NON AFRICAN AMERICAN 87 mL/min (90-120)
[2019-11-17 05:19] LABS: CALC OSMOLALITY 296 mosm/kg (275-300); CREATININE - SERUM 0.7 mg/dL (0.6-1.3); GLUCOSE 153 mg/dL (74-106)
--- NOTE | 2019-11-17 08:00 | NUR ---
ASSESSMENT PER FLOW SHEET. PT IS WITHOUT DISTRESS.MONITOR FOR NEEDS
[2019-11-17 08:53] VITALS: BP 152/91
--- NOTE | 2019-11-17 12:49 | MORECARE ---
CASE MANAGEMENT DISCHARGE SUMMARY PATIENT: DASIA STRATTON UNIT: [id number] ADM DATE: 11/05/19 AGE: 73 : 47 SEX: F ROOM/BED: D.2224 AUTHOR: ALEX,DOC PHYSICIAN: REFERRING PHYSICIAN: JARRED KRUSE MD DATE OF SERVICE: 11/17/19 Discharge Plan Patient Name: DASIA STRATTON Facility: [facility]:[place] : 1945 Planned Disposition: Anticipated Discharge Date: Discharge Date: Expected LOS: Initial Reviewer: [email or web address] Initial Review Date: 11/06/2019 Generated: 11/17/19 1:49 pm Comments DCP- Discharge Planning Updated by [id number]: Kirstie Guevara on 11/17/19 11:[address] IMM SERVED AND EXPLAINED, [facility] AND [facility] DCP- Discharge Planning Updated by [email or web address]: Coleen Ludivina on 11/16/19 3:[address] [facility] rehab will not be able to accept patient on home BIPAP. If the physician determines she needs a BIPAP, the physician will need or order Bipap for home and I will contact [facility]. She will need a new walk test and orders and clinical faxed to [facility]. CM will continue to follow and assist with discharge planning/needs. DCP- Discharge Planning Updated by [id number]: Coleen Ludivina on 11/16/19 3:[address] [facility]. I spoke with Cyndi at [facility] and they have a contract with [facility], so the patient can switch to [facility] any time she would like to switch DME companies. She will need to requalify for home oxygen with a walk test and be in a chronic stable states prior to discharge. CM will continue to follow and assist with discharge planning/needs. DCP- Discharge Planning Updated by [id number]: Coleen Luciakarely on 11/16/19 3:[address] Daughter, Jennifer, called back and states if she is denied inpatient rehab in [place], she would like a referral to [facility]. She states her DME company for oxygen is [employer] in [place], but she states she would like to change to [facility] if she is able to switch companies. I have called Jason with [facility] and face sheet faxed. CM will continue to follow and assist with discharge planning/needs. DCP- Discharge Planning Updated by [id number]: Coleen Florence on 11/16/19 11:[address] I called Mariluz at [facility] rehab to f/u on referral sent on Saturday by Cheryle. Mariluz states she has not gotten a referral for this patient. I faxed referral to [phone]. I attempted to call [phone] to speak with daughter per her request and left a message on answering machine with my call back number. She has managed medicare and will require preauthorization. CM will continue to follow and assist with discharge planning/needs. DCP- Discharge Planning Updated by [email or web address]: Natasha Pacheco on 11/13/19 6:[address] CM spoke with patient regarding inpatient rehab DE signed for [facility]. CM faxed records late this evening to [place] [facility] will f/u on Saturday to check and see if they received records.CM will continue to follow and assist as needed with discharge planning / needs DCP- Discharge Planning Updated by [email or web address]: Natasha Pacheco on 11/10/19 1:[address] LATE ENTRY 11/09/19 Patient Name: DASIA STRATTON Admission Status: Elective Accout number: [id number] Admission Date: 11-05-2019 : 1945 Admission Diagnosis: Attending: JARRED SCALES Current LOS: 4 Anticipated DC Date: Planned Disposition: Primary Insurance: HUMANA CHOICE PPO [facility] Discharge Planning Comments: CM met with patient's daughter Jennifer to complete initial dc planning assessment. Patient is currently still on vent. CM educated patient's daughter on the CM role and verbal consent given by patient to complete assessment. Patient lives at home with her where she is independent with her care. At discharge patient plans to return home and feels this is a safe discharge. CM discussed availability of home health, rehab services, and medical equipment. Her daughter will be her class a truck driver home. Patient has a nebulizer and home o2 ( unknown provider) Jennifer denied known discharge needs at this time. CM will continue to follow and will assist as needed with dc plans/needs. Forge Operator Helper: Natasha Pacheco DCP- Discharge Planning Updated by [id number]: Natasha Pacheco on 11/06/19 5:[address] CM attempted to visit with patient regarding discharge planning/ needs. Patient currently on vent no family available. CM will continue to follow and assist as needed with discharge planning / needs DCPIA - Discharge Planning Initial Assessment Updated by [email or web address]: Natasha Pacheco on 11/10/19 1:58 pm * Is the patient Alert and Oriented? Yes * How many steps to enter\exit or inside your home? * PCP ALAN CAREY AP[facility] - DR MALDONADO OFFICE * Pharmacy [facility] * Preadmission Environment Home with Family * ADLs Independent * Equipment Oxygen * Other Equipment HOME 02 AND NEBULIZER * List name and contact numbers for known caregivers / representatives who currently or will assist patient after discharge: JENNIFER GARCÍA - DAUGHTER- [phone] OR [phone] * Verbal permission to speak to the caregivers and representatives has been obtained from the patient. N/A * Community resources currently utilized None * Additional services required to return to the preadmission environment? No * Can the patient safely return to the preadmission environment? Yes * Has this patient been hospitalized within the prior 30 days at any hospital? No Coverage Notice Reviewer: [id number] - Natasha Pacheco Notice Issued Date-Time: 11/13/2019 11:30 Notice Type: Patient Choice Letter Notice Delivered To: Patient Relationship to Patient: Self Artificial Foliage Arranger Name: Delivery Method: - Bonita Days: Prior Verbal Notification: Recipient Understood Notice: Yes Recipient Signature: Yes Med Rec Note Co-signed by Attending: Coverage Notice Comment: INPATIENT REHAB - [place] OR [facility] Reviewer: [id number] - Coleen Florence Notice Issued Date-Time: 11/16/2019 16:05 Notice Type: Patient Choice Letter Notice Delivered To: Family Member Relationship to Patient: Daughter Artificial Foliage Arranger Name: Jennifer García Delivery Method: PHONE - Phone Bonita Days: Prior Verbal Notification: Recipient Understood Notice: Yes Recipient Signature: Med Rec Note Co-signed by Attending: Coverage Notice Comment: DE for [employer] if denied for Inpatient rehab and [facility] if she can change companies. Reviewer: [id number] - Kirstie Guevara Notice Issued Date-Time: 11/17/2019 11:40 Notice Type: IM Discharge Notice Notice Delivered To: Patient Relationship to Patient: Artificial Foliage Arranger Name: Delivery Method: HAND - Hand Delivered Bonita Days: Prior Verbal Notification: Recipient Understood Notice: Yes Recipient Signature: Yes Med Rec Note Co-signed by Attending: Coverage Notice Comment: Reviewer: [email or web address] James Guevara Notice Issued Date-Time: 11/17/2019 11:40 Notice Type: Patient Choice Letter Notice Delivered To: Patient Relationship to Patient: Artificial Foliage Arranger Name: Delivery Method: HAND - Hand Delivered Bonita Days: Prior Verbal Notification: Recipient Understood Notice: Yes Recipient Signature: Yes Med Rec Note Co-signed by Attending: Coverage Notice Comment: DE FOR [facility] IN[facility] REH[facility] Last DP export: 11/16/19 3:51 Patient Name: DASIA STRATTON Page [id number] at 1249 All edits/amendments must be made on the electronic document DICTATION DATE: 11/17/19 124 FOLDER OPERATOR: PITA 11/17/19 1249 RPT#: [id number] DC DATE: STATUS: ADM IN [facility] [address] [place] [address] END OF REPORT
[2019-11-17 12:55] VITALS: BP 107/77
--- NOTE | 2019-11-17 13:36 | MORECARE ---
CASE MANAGEMENT DISCHARGE SUMMARY PATIENT: DASIA STRATTON UNIT: [id number] ADM DATE: 11/05/19 AGE: 73 : [birth year] SEX: F ROOM/BED: D.2224 AUTHOR: ALEX,DOC PHYSICIAN: REFERRING PHYSICIAN: JARRED KRUSE MD DATE OF SERVICE: 11/17/19 Discharge Plan Patient Name: DASIA STRATTON Facility: [facility]:[place] : 1945 Planned Disposition: Anticipated Discharge Date: Discharge Date: Expected LOS: Initial Reviewer: [email or web address] Initial Review Date: 11/06/2019 Generated: 11/17/19 2:35 pm Comments DCP- Discharge Planning Updated by [email or web address]: Kirstie Guevara on 11/17/19 11:[address] IMM SERVED AND EXPLAINED, [facility] AND [facility] DCP- Discharge Planning Updated by [id number]: Coleen Ludivina on 11/16/19 3:[address] [facility] rehab will not be able to accept patient on home BIPAP. If the physician determines she needs a BIPAP, the physician will need or order Bipap for home and I will contact [facility]. She will need a new walk test and orders and clinical faxed to [facility]. CM will continue to follow and assist with discharge planning/needs. DCP- Discharge Planning Updated by [email or web address]: Coleen Ludivina on 11/16/19 3:[address] [facility]. I spoke with Cyndi at [facility] and they have a contract with [facility], so the patient can switch to [facility] any time she would like to switch DME companies. She will need to requalify for home oxygen with a walk test and be in a chronic stable states prior to discharge. CM will continue to follow and assist with discharge planning/needs. DCP- Discharge Planning Updated by [id number]: Coleen Luciakarely on 11/16/19 3:[address] Daughter, Jennifer, called back and states if she is denied inpatient rehab in [place], she would like a referral to [facility]. She states her DME company for oxygen is [employer] in [place], but she states she would like to change to [facility] if she is able to switch companies. I have called Jason with [facility] and face sheet faxed. CM will continue to follow and assist with discharge planning/needs. DCP- Discharge Planning Updated by [id number]: Coleen Florence on 11/16/19 11:[address] I called Mariluz at [facility] rehab to f/u on referral sent on Saturday by Cheryle. Mariluz states she has not gotten a referral for this patient. I faxed referral to [phone]. I attempted to call [phone] to speak with daughter per her request and left a message on answering machine with my call back number. She has managed medicare and will require preauthorization. CM will continue to follow and assist with discharge planning/needs. DCP- Discharge Planning Updated by [id number]: Natasha Pacheco on 11/13/19 6:[address] CM spoke with patient regarding inpatient rehab DE signed for [facility]. CM faxed records late this evening to [place] [facility] will f/u on Saturday to check and see if they received records.CM will continue to follow and assist as needed with discharge planning / needs DCP- Discharge Planning Updated by [id number]: Natasha Pacheco on 11/10/19 1:[address] LATE ENTRY 11/09/19 Patient Name: DASIA STRATTON Admission Status: Elective Accout number: [id number] Admission Date: 11-05-2019 : 1945 Admission Diagnosis: Attending: JARRED SCALES Current LOS: 4 Anticipated DC Date: Planned Disposition: Primary Insurance: HUMANA CHOICE PPO [facility] Discharge Planning Comments: CM met with patient's daughter Jennifer to complete initial dc planning assessment. Patient is currently still on vent. CM educated patient's daughter on the CM role and verbal consent given by patient to complete assessment. Patient lives at home with her where she is independent with her care. At discharge patient plans to return home and feels this is a safe discharge. CM discussed availability of home health, rehab services, and medical equipment. Her daughter will be her otr driver home. Patient has a nebulizer and home o2 ( unknown provider) Jennifer denied known discharge needs at this time. CM will continue to follow and will assist as needed with dc plans/needs. Deputy Sheriff Custody: Natasha Pacheco DCP- Discharge Planning Updated by [id number]: Natasha Pacheco on 11/06/19 5:[address] CM attempted to visit with patient regarding discharge planning/ needs. Patient currently on vent no family available. CM will continue to follow and assist as needed with discharge planning / needs DCPIA - Discharge Planning Initial Assessment Updated by [email or web address]: Natasha Pacheco on 11/10/19 1:58 pm * Is the patient Alert and Oriented? Yes * How many steps to enter\exit or inside your home? * PCP [facility]AN C[facility] - DR MALDONADO OFFICE * [facility] * Preadmission Environment Home with Family * ADLs Independent * Equipment Oxygen * Other Equipment HOME 02 AND NEBULIZER * List name and contact numbers for known caregivers / representatives who currently or will assist patient after discharge: JENNIFER GARCÍA - DAUGHTER- [phone] OR [phone] * Verbal permission to speak to the caregivers and representatives has been obtained from the patient. N/A * Community resources currently utilized None * Additional services required to return to the preadmission environment? No * Can the patient safely return to the preadmission environment? Yes * Has this patient been hospitalized within the prior 30 days at any hospital? No External Providers External Provider: Ign[facility] Next Contact Date: Service Request Date: Service Type: Resolution: Reviewer: Comments: Coverage Notice Reviewer: [id number] - Natasha Pacheco Notice Issued Date-Time: 11/13/2019 11:30 Notice Type: Patient Choice Letter Notice Delivered To: Patient Relationship to Patient: Self Beach Patrol Lieutenant Name: Delivery Method: - Bonita Days: Prior Verbal Notification: Recipient Understood Notice: Yes Recipient Signature: Yes Med Rec Note Co-signed by Attending: Coverage Notice Comment: INPATIENT REHAB - [place] OR [facility] Reviewer: [id number] - Coleen Florence Notice Issued Date-Time: 11/16/2019 16:05 Notice Type: Patient Choice Letter Notice Delivered To: Family Member Relationship to Patient: Daughter Beach Patrol Lieutenant Name: Jennifer García Delivery Method: PHONE - Phone Bonita Days: Prior Verbal Notification: Recipient Understood Notice: Yes Recipient Signature: Med Rec Note Co-signed by Attending: Coverage Notice Comment: [facility] for [facility] if denied for Inpatient rehab and [facility] if she can change companies. Reviewer: [id number] James Guevara Notice Issued Date-Time: 11/17/2019 11:40 Notice Type: IM Discharge Notice Notice Delivered To: Patient Relationship to Patient: Beach Patrol Lieutenant Name: Delivery Method: HAND - Hand Delivered Bonita Days: Prior Verbal Notification: Recipient Understood Notice: Yes Recipient Signature: Yes Med Rec Note Co-signed by Attending: Coverage Notice Comment: Reviewer: [email or web address] James Guevara Notice Issued Date-Time: 11/17/2019 11:40 Notice Type: Patient Choice Letter Notice Delivered To: Patient Relationship to Patient: Beach Patrol Lieutenant Name: Delivery Method: HAND - Hand Delivered Bonita Days: Prior Verbal Notification: Recipient Understood Notice: Yes Recipient Signature: Yes Med Rec Note Co-signed by Attending: Coverage Notice Comment: DE FOR [facility] Last DP export: 11/17/19 11:49 Patient Name: DASIA STRATTON Page 20509 at 1336 All edits/amendments must be made on the electronic document DICTATION DATE: 11/17/19 1335 ANALYTICAL ENGINEER: PITA 11/17/19 1335 RPT#: [id number] DC DATE: STATUS: ADM IN [facility] [address] [place] [address] END OF REPORT
[2019-11-17] MEDS ORDERED: SYMBICORT 16010.2 GM INH (13:57)
[2019-11-17] MEDS ORDERED: FERROUS SULFAT325 MG PO (13:57)
[2019-11-17] MEDS ORDERED: HCTZ25 MG PO (13:58)
[2019-11-17] MEDS ORDERED: HYDROCODON-ACE1 EAC7 PO (13:58)
[2019-11-17] MEDS ORDERED: TRAZODONE HCL150 MG (13:59)
[2019-11-17] MEDS ORDERED: ALBUTEROL0.63 MG/3 INH (14:03)
[2019-11-17] MEDS ORDERED: ATROVENT 0.02%2.5 ML UPD (14:03)
[2019-11-17] MEDS ORDERED: COZAAR25 MG PO (14:04)
[2019-11-17] MEDS ORDERED: PREDNISONE10 MG PO (14:08)
--- NOTE | 2019-11-17 14:12 | MORECARE ---
CASE MANAGEMENT DISCHARGE SUMMARY PATIENT: DASIA STRATTON UNIT: [id number] ADM DATE: 11/05/19 AGE: 73 : [birth year] SEX: F ROOM/BED: D.2224 AUTHOR: ALEX,DOC PHYSICIAN: REFERRING PHYSICIAN: JARRED KRUSE MD DATE OF SERVICE: 11/17/19 Discharge Plan Patient Name: DASIA STRATTON Facility: [facility]:[place] : 1945 Planned Disposition: Anticipated Discharge Date: Discharge Date: Expected LOS: Initial Reviewer: [id number] Initial Review Date: 11/06/2019 Generated: 11/17/19 3:12 pm Comments DCP- Discharge Planning Updated by [id number]: Kirstie Guevara on 11/17/19 1:[address] PATIENT WILL BE DISCHARGING HOME TODAY WITH [facility] AND HOME IN [place] THEY WILL SEE HER ON SATURDAY [facility] WILL BE SETTING UP HER O2 NEEDS. FAXED ALL CLINICALS TO [facility] DCP- Discharge Planning Updated by [email or web address]: Kirstie Guevara on 11/17/19 11:[address] IMM SERVED AND EXPLAINED, DE WITH [facility], [facility] AND [facility] DCP- Discharge Planning Updated by [id number]: Coleen Florence on 11/16/19 3:[address] [facility] on [facility]IPAP. If the physician determines she needs a BIPAP, the physician will need or order Bipap for home and I will contact [facility]. She will need a new walk test and orders and clinical faxed to [facility]. CM will continue to follow and assist with discharge planning/needs. DCP- Discharge Planning Updated by [id number]: Coleen Florence on 11/16/19 3:[address] I called [facility], they have received the referral. I spoke with Cyndi at [facility] and they have a contract with [facility], so the patient can switch to [facility] any time she would like to switch DME companies. She will need to requalify for home oxygen with a walk test and be in a chronic stable states prior to discharge. CM will continue to follow and assist with discharge planning/needs. DCP- Discharge Planning Updated by [id number]: Coleen Florence on 11/16/19 3:[address] Daughter, Jennifer, called back and states if she is denied inpatient rehab in [place], she would like a referral to [facility]. She states her DME company for oxygen is [employer] in [place], but she states she would like to change to [employer] if she is able to switch companies. I have called Jason with [facility] and face sheet faxed. CM will continue to follow and assist with discharge planning/needs. DCP- Discharge Planning Updated by [id number]: Coleen Florence on 11/16/19 11:[address] I called Mariluz at [facility] rehab to f/u on referral sent on Saturday by Cheryle. Mariluz states she has not gotten a referral for this patient. I faxed referral to [phone]. I attempted to call [phone] to speak with daughter per her request and left a message on answering machine with my call back number. She has managed medicare and will require preauthorization. CM will continue to follow and assist with discharge planning/needs. DCP- Discharge Planning Updated by [id number]: Natasha Pacheco on 11/13/19 6:[address] CM spoke with patient regarding inpatient rehab DE signed for [facility]. CM faxed records late this evening to [facility] will f/u on Saturday to check and see if they received records.CM will continue to follow and assist as needed with discharge planning / needs DCP- Discharge Planning Updated by [email or web address]: Natasha Pacheco on 11/10/19 1:[address] LATE ENTRY 11/09/19 Patient Name: DASIA STRATTON Admission Status: Elective Accout number: [id number] Admission Date: 11-05-2019 : 1945 Admission Diagnosis: Attending: JARRED SCALES Current LOS: 4 Anticipated DC Date: Planned Disposition: Primary Insurance: [employer] CHOICE PPO MCR ADVANT Discharge Planning Comments: CM met with patient's daughter Jennifer to complete initial dc planning assessment. Patient is currently still on vent. CM educated patient's daughter on the CM role and verbal consent given by patient to complete assessment. Patient lives at home with her where she is independent with her care. At discharge patient plans to return home and feels this is a safe discharge. CM discussed availability of home health, rehab services, and medical equipment. Her daughter will be her local company refrigerated truck driver home. Patient has a nebulizer and home o2 ( unknown provider) Jennifer denied known discharge needs at this time. CM will continue to follow and will assist as needed with dc plans/needs. Grubber: Natasha Pacheco DCP- Discharge Planning Updated by [id number]: Natasha Pacheco on 11/06/19 5:[address] CM attempted to visit with patient regarding discharge planning/ needs. Patient currently on vent no family available. CM will continue to follow and assist as needed with discharge planning / needs DCPIA - Discharge Planning Initial Assessment Updated by [email or web address]: Natasha Pacheco on 11/10/19 1:58 pm * Is the patient Alert and Oriented? Yes * How many steps to enter\exit or inside your home? * PCP ALAN CAREY [facility] - DR MALDONADO OFFICE * Pharmacy [facility] * Preadmission Environment Home with Family * ADLs Independent * Equipment Oxygen * Other Equipment HOME 02 AND NEBULIZER * List name and contact numbers for known caregivers / representatives who currently or will assist patient after discharge: JENNIFER GARCÍA - DAUGHTER- [phone] OR [phone] * Verbal permission to speak to the caregivers and representatives has been obtained from the patient. N/A * Community resources currently utilized None * Additional services required to return to the preadmission environment? No * Can the patient safely return to the preadmission environment? Yes * Has this patient been hospitalized within the prior 30 days at any hospital? No Coverage Notice Reviewer: [id number] - Natasha Pacheco Notice Issued Date-Time: 11/13/2019 11:30 Notice Type: Patient Choice Letter Notice Delivered To: Patient Relationship to Patient: Self Investigative Shopper Name: Delivery Method: - Bonita Days: Prior Verbal Notification: Recipient Understood Notice: Yes Recipient Signature: Yes Med Rec Note Co-signed by Attending: Coverage Notice Comment: INPATIENT REHAB - [place] OR [facility] Reviewer: [id number] - Coleen Florence Notice Issued Date-Time: 11/16/2019 16:05 Notice Type: Patient Choice Letter Notice Delivered To: Family Member Relationship to Patient: Daughter Investigative Shopper Name: Jennifer García Delivery Method: PHONE - Phone Bonita Days: Prior Verbal Notification: Recipient Understood Notice: Yes Recipient Signature: Med Rec Note Co-signed by Attending: Coverage Notice Comment: DE for [facility] if denied for Inpatient rehab and Ana if she can change companies. Reviewer: [email or web address] James Guevara Notice Issued Date-Time: 11/17/2019 11:40 Notice Type: IM Discharge Notice Notice Delivered To: Patient Relationship to Patient: Investigative Shopper Name: Delivery Method: HAND - Hand Delivered Bonita Days: Prior Verbal Notification: Recipient Understood Notice: Yes Recipient Signature: Yes Med Rec Note Co-signed by Attending: Coverage Notice Comment: Reviewer: [id number] James Guevara Notice Issued Date-Time: 11/17/2019 11:40 Notice Type: Patient Choice Letter Notice Delivered To: Patient Relationship to Patient: Investigative Shopper Name: Delivery Method: HAND - Hand Delivered Bonita Days: Prior Verbal Notification: Recipient Understood Notice: Yes Recipient Signature: Yes Med Rec Note Co-signed by Attending: Coverage Notice Comment: DE FOR [facility] Last DP export: 11/17/19 12:36 Patient Name: DASIA STRATTON Page [id number] at 1412 All edits/amendments must be made on the electronic document DICTATION DATE: 11/17/191411 RANGE RIDER: PITA 11/17/191411 RPT#: [id number] DC DATE: STATUS: ADM IN [facility] [address] [place] [address] END OF REPORT
--- NOTE | 2019-11-17 14:21 | MORECARE ---
CASE MANAGEMENT DISCHARGE SUMMARY PATIENT: DASIA STRATTON UNIT: [id number] ADM DATE: 11/05/19 AGE: 73 : 47 SEX: F ROOM/BED: D.2224 AUTHOR: ALEX,DOC PHYSICIAN: REFERRING PHYSICIAN: JARRED KRUSE MD DATE OF SERVICE: 11/17/19 Discharge Plan Patient Name: DASIA STRATTON Facility: [facility]:[place] : 1945 Planned Disposition: Anticipated Discharge Date: Discharge Date: Expected LOS: Initial Reviewer: [email or web address] Initial Review Date: 11/06/2019 Generated: 11/17/19 3:21 pm Comments DCP- Discharge Planning Updated by [id number]: Kirstie Guevara on 11/17/19 1:[address] SPOKE WITH JENNIFER (DAUGHTER) AND SHE WILL BE HERE TO PICK HER UP IN A COUPLE OF HOURS SHE IS TRAVELING FROM [place] DCP- Discharge Planning Updated by [id number]: Kirstie Guevara on 11/17/19 1:[address] PATIENT WILL BE DISCHARGING HOME TODAY WITH [facility] IN [place] THEY WILL SEE HER ON SATURDAY [facility] WILL BE SETTING UP HER O2 NEEDS. FAXED ALL CLINICALS TO [facility] DCP- Discharge Planning Updated by [id number]: Kirstie Guevara on 11/17/19 11:[address] IMM SERVED AND EXPLAINED, [facility] AND [facility] DCP- Discharge Planning Updated by [id number]: Coleen Florence on 11/16/19 3:[address] [facility] rehab will not be able to accept patient on home BIPAP. If the physician determines she needs a BIPAP, the physician will need or order Bipap for home and I will contact [facility]. She will need a new walk test and orders and clinical faxed to [facility]. CM will continue to follow and assist with discharge planning/needs. DCP- Discharge Planning Updated by [id number]: Coleen Florence on 11/16/19 3:[address] [facility]. I spoke with Cyndi at [facility] and they have a contract with [facility], so the patient can switch to [employer] any time she would like to switch DME companies. She will need to requalify for home oxygen with a walk test and be in a chronic stable states prior to discharge. CM will continue to follow and assist with discharge planning/needs. DCP- Discharge Planning Updated by [id number]: Coleen Florence on 11/16/19 3:[address] Daughter, Jennifer, called back and states if she is denied inpatient rehab in [place], she would like a referral to [facility]. She states her DME company for oxygen is [employer] in [place], but she states she would like to change to [employer] if she is able to switch companies. I have called Jason with [facility] and face sheet faxed. CM will continue to follow and assist with discharge planning/needs. DCP- Discharge Planning Updated by [id number]: Coleen Florence on 11/16/19 11:[address] I called Mariluz at [facility] rehab to f/u on referral sent on Saturday by Cheryle. Mariluz states she has not gotten a referral for this patient. I faxed referral to [phone]. I attempted to call [phone] to speak with daughter per her request and left a message on answering machine with my call back number. She has managed medicare and will require preauthorization. CM will continue to follow and assist with discharge planning/needs. DCP- Discharge Planning Updated by [id number]: Natasha Pacheco on 11/13/19 6:[address] CM spoke with patient regarding inpatient rehab DE signed for [facility]. CM faxed records late this evening to [facility] will f/u on Saturday to check and see if they received records.CM will continue to follow and assist as needed with discharge planning / needs DCP- Discharge Planning Updated by [id number]: Natasha Pacheco on 11/10/19 1:[address] LATE ENTRY 11/09/19 Patient Name: DASIA STRATTON Admission Status: Elective Accout number: [id number] Admission Date: 11-05-2019 : 1945 Admission Diagnosis: Attending: JARRED SCALES Current LOS: 4 Anticipated DC Date: Planned Disposition: Primary Insurance: [employer] CHOICE PPO MCR ADVANT Discharge Planning Comments: CM met with patient's daughter Jennifer to complete initial dc planning assessment. Patient is currently still on vent. CM educated patient's daughter on the CM role and verbal consent given by patient to complete assessment. Patient lives at home with her where she is independent with her care. At discharge patient plans to return home and feels this is a safe discharge. CM discussed availability of home health, rehab services, and medical equipment. Her daughter will be her national van truck driver home. Patient has a nebulizer and home o2 ( unknown provider) Jennifer denied known discharge needs at this time. CM will continue to follow and will assist as needed with dc plans/needs. Human Resources Safety Manager: Natasha Pacheco DCP- Discharge Planning Updated by [id number] Pacheco on 11/06/19 5:[address] CM attempted to visit with patient regarding discharge planning/ needs. Patient currently on vent no family available. CM will continue to follow and assist as needed with discharge planning / needs DCPIA - Discharge Planning Initial Assessment Updated by [email or web address] Pacheco on 11/10/19 1:58 pm * Is the patient Alert and Oriented? Yes * How many steps to enter\exit or inside your home? * PCP ALAN CARE[facility] - DR MALDONADO OFFICE * [facility]acy [facility] * Preadmission Environment Home with Family * ADLs Independent * Equipment Oxygen * Other Equipment HOME 02 AND NEBULIZER * List name and contact numbers for known caregivers / representatives who currently or will assist patient after discharge: JENNIFER GARCÍA - DAUGHTER- [phone] OR [phone] * Verbal permission to speak to the caregivers and representatives has been obtained from the patient. N/A * Community resources currently utilized None * Additional services required to return to the preadmission environment? No * Can the patient safely return to the preadmission environment? Yes * Has this patient been hospitalized within the prior 30 days at any hospital? No Coverage Notice Reviewer: [id number] James Pacheco Notice Issued Date-Time: 11/13/2019 11:30 Notice Type: Patient Choice Letter Notice Delivered To: Patient Relationship to Patient: Self Ground Crewman Aircraft Support Name: Delivery Method: - Bonita Days: Prior Verbal Notification: Recipient Understood Notice: Yes Recipient Signature: Yes Med Rec Note Co-signed by Attending: Coverage Notice Comment: INPATIENT REHAB - [facility] Reviewer: [id number] James Florence Notice Issued Date-Time: 11/16/2019 16:05 Notice Type: Patient Choice Letter Notice Delivered To: Family Member Relationship to Patient: Daughter Ground Crewman Aircraft Support Name: Jennifer García Delivery Method: PHONE - Phone Bonita Days: Prior Verbal Notification: Recipient Understood Notice: Yes Recipient Signature: Med Rec Note Co-signed by Attending: Coverage Notice Comment: DE for [facility] if denied for Inpatient rehab and Ana if she can change companies. Reviewer: [id number] James Guevara Notice Issued Date-Time: 11/17/2019 11:40 Notice Type: IM Discharge Notice Notice Delivered To: Patient Relationship to Patient: Ground Crewman Aircraft Support Name: Delivery Method: HAND - Hand Delivered Bonita Days: Prior Verbal Notification: Recipient Understood Notice: Yes Recipient Signature: Yes Med Rec Note Co-signed by Attending: Coverage Notice Comment: Reviewer: [id number] James Guevara Notice Issued Date-Time: 11/17/2019 11:40 Notice Type: Patient Choice Letter Notice Delivered To: Patient Relationship to Patient: Ground Crewman Aircraft Support Name: Delivery Method: HAND - Hand Delivered Bonita Days: Prior Verbal Notification: Recipient Understood Notice: Yes Recipient Signature: Yes Med Rec Note Co-signed by Attending: Coverage Notice Comment: DE FOR [facility] Last DP export: 11/17/19 1:12 Patient Name: DASIA STRATTON Page [id number] at 1421 All edits/amendments must be made on the electronic document DICTATION DATE: 11/17/191420 HOUSE REPAIRER: PITA 11/17/19 142 RPT#: [id number] DC DATE: STATUS: ADM IN [facility] [address] [place] [address] END OF REPORT
--- NOTE | 2019-11-17 17:19 | NUR ---
DAUGHTER HERE AND TOLD PATIENT THAT HER BROTHER AND FAMILY PET HAS PASSED AFTER HER ADMIT TO HOSPITAL. PT IS VERY UPSET ,BUT WANTS TO GO HOME.SHE IS WITHOUT RESP DISTRESS AT PRESENT. CVL DCD WITH TIP INTACT.DISCHARGE INSTRUCTIONS,STATES UNDERSTANDING.
== END 2019-11-17 17:45 | disposition home health service (06) | DRG 207 ==
LOC: D.ICU 18:34 → D.MS 11-13 17:15
PROVIDERS: Emergency Medicine; Internal Medicine Nephrology; Internal Medicine Pulmonary Disease; ADMIT Family Medicine; ATTEND Family Medicine
PROC: 5A1955Z Respiratory Ventilation, Greater than 96 Consecutive Hours (ICD-10-PCS; principal; 2019-11-05)
DX: J96.22 Acute and chronic respiratory failure with hypercapnia (principal); I46.9 Cardiac arrest, cause unspecified; J18.9 Pneumonia, unspecified organism; J44.1 Chronic obstructive pulmonary disease with (acute) exacerbation; F17.213 Nicotine dependence, cigarettes, with withdrawal; E87.0 Hyperosmolality and hypernatremia; G93.1 Anoxic brain damage, not elsewhere classified; J96.21 Acute and chronic respiratory failure with hypoxia; R00.1 Bradycardia, unspecified; I10 Essential (primary) hypertension; M19.90 Unspecified osteoarthritis, unspecified site; D64.9 Anemia, unspecified; E83.51 Hypocalcemia; E83.39 Other disorders of phosphorus metabolism; F41.9 Anxiety disorder, unspecified

== ENCOUNTER → 2020-01-15 10:25 | Outpatient (CLI) | payer MEDICARE ==
[2019-11-06 08:52] VITALS: BMI 20.1
[~2020-01-15 10:25] MED LIST: ALBUTEROL0.63 MG/3 INH; ATROVENT 0.02%2.5 ML UPD; COZAAR25 MG PO; EFFEXOR XR150 MG PO; FERROUS SULFAT325 MG PO; HCTZ25 MG PO; HYDROCODON-ACE1 EAC7 PO; PREDNISONE10 MG PO; SYMBICORT 16010.2 GM INH; TRAZODONE HCL150 MG
== END | disposition home or self-care (01) ==
LOC: D.RT 12-14 15:30
PROVIDERS: ATTEND Internal Medicine Pulmonary Disease
DX: R05 Cough (principal); R06.02 Shortness of breath